=== PATIENT | female | born 1950 | race Caucasian/White ===

== ENCOUNTER 2024-02-25 12:37 | Emergency (ER) | payer OTHER, SELFPAY ==
[2024-02-25 13:13] VITALS: BP 121/50; PULSE 63; RESP 15; TEMP 36.7; O2SAT 94
--- NOTE | 2024-02-25 13:36 | PC.NURSE ---
Pt daughter is refusing to let the pt be tested for Covid. RN attempted to educate pt and pt daughter but was unsuccessful. Pt daughter stating If they swab you for it, you'll get covid. RN attempted to again educate patient and pt daughter but was unsuccessful. Pt daughter states the The reason my mom is this way is because she smoked K2 . Pt refused to be tested, EDP Sandhya Stroud PA-C made aware of refusal and substance use
[2024-02-25 13:57] LABS: Hematocrit 34.8 % (37.0-47.0); Hemoglobin 11.1 g/dL (12.0-15.0); Immature Platelet Fraction Pct 3.9 % (0.9-11.2); Mean Corpuscular HGB Conc 31.9 g/dl (32-36); Mean Corpuscular Hemoglobin 31.4 pg (26-34); Mean Corpuscular Volume 98.6 fl (80-100); Mean Platelet Volume 9.9 fl (7.4-10.4); Platelet Count Result 107 k/mm3 (150-375); Red Blood Count 3.53 M/mm3 (4.2-5.4); Red Cell Distribution Width 14.1 % (11.5-14.5)
[2024-02-25 14:05] LABS: Alanine Aminotransferase 13 U/L (6-35); Albumin Level 4.2 g/dL (3.5-5.1); Alkaline Phosphatase 86 U/L (38-126); Anion Gap 10 mmol/L (4-12); Aspartate Amino Transferase 38 U/L (14-36); Bilirubin,Total 0.6 mg/dL (0.2-1.3); Blood Urea Nitrogen 23 mg/dL (7-17); Calcium 8.9 mg/dL (8.4-10.2); Carbon Dioxide 26 mmol/L (22-30); Chloride 99 mmol/L (98-107); Creatine Kinase 42 U/L (30-135); Estimated Glomerular Filt Rate > 60; Glucose 93 mg/dL (65-110); Lipase 145 U/L (23-300); Potassium 3.7 mmol/L (3.4-5.0); Sodium 135 mmol/L (137-145)
[2024-02-25 14:20] LABS: White Blood Count 73.4 K/mm3 (4.5-10.0)
[2024-02-25 14:25] LABS: Band Neutrophils Percent 1 % (0-6); Lymphocytes Absolute Manual 69.73 K/mm3 (1.1-4.5); Lymphocytes Percent Manual 95 % (18-44); Neutrophils Absolute Manual 3.67 K/mm3 (1.7-7.2); Neutrophils Percent Manual 4 % (46-73); Platelet Estimate Decreased (Adequate); Schistocytes None Seen; Smudge Cells MODERATE
[2024-02-25 15:00] LABS: Add Urine Microscopic? YES; Appearance Urine Clear (Clear); Bacteria Urine Rare /hpf; Bilirubin Urine Negative (Negative); Blood Urine 1+ (Negative); Color Urine Yellow (Yellow); Glucose Urine UA Negative (Negative); Ketones Urine Trace mg/dL (Negative); Leukocyte Esterase Ur Negative LEU/UL (Negative); Nitrate Urine Negative (Negative); Non Pathogenic Casts 0-2; Protein Urine Negative (Negative); RBC Urine 0-2 /hpf (0-2); Specific Grav Ur 1.016 (1.001-1.035); Squamous Epithelial Cell Urine Occasional /hpf (Few); Urobilinogen Urine 0.2 mg/dL (<2.0); WBC Urine 0-5 /hpf (0-3); pH Urine 5.5 (5.0-9.0)
[2024-02-25 15:21] LABS: Amphetamine Screen Urine Negative (Negative); Barbiturate Screen Urine Negative (Negative); Benzodiazepines Screen Urine Negative (Negative); Cannabinoid Screen Urine Positive (Negative); Cocaine Screen Urine Negative (Negative); Methadone Screen Urine Negative (Negative); Opiate Screen Urine Negative (Negative); Phencyclidine Screen Urine Negative (Negative)
[2024-02-25 15:35] LABS: Influenza A QL RT-PCR Negative (Negative); Influenza B QL RT-PCR Negative (Negative); RSV RNA, RT-PCR Negative (Negative); SARS-CoV-2 RNA PCR Negative (Negative)
== END 2024-02-26 03:52 | disposition left against medical advice (07) ==
PROVIDERS: Emergency Provider Physician Assistant; PCP Internal Medicine
DX: R11.2 Nausea with vomiting, unspecified (principal); R19.7 Diarrhea, unspecified; Z20.822 Contact with and (suspected) exposure to COVID-19
CPT/HCPCS: 36415; 80053; 80307; 81001; 82550; 83690; 85025; 85055; 87637; 99199

== ENCOUNTER 2024-03-16 12:52 | Observation (INO) | payer MEDICARE, SELFPAY ==
[2024-03-16] VITALS (12 sets, daily range): BP systolic 148–180; BP diastolic 65–90; PULSE 56–98; RESP 11–18; TEMP 36.5–36.8; O2SAT 96–99; BMI 17.9
--- NOTE | ~2024-03-16 | US_ITS ---
EXAMINATION: US carotid duplex BI DATE: 03/17/2024 12:15 INDICATION: Vertigo. TECHNIQUE: Grayscale, color Doppler, and pulsed Doppler images of the cervical carotid arteries were obtained. The degree of vessel stenosis is placed in one of the following categories: normal, <50%, 5 0-69%, >=70% but less than near-occlusion, near-occlusion, or total occlusion. Note that percent sten osis relative to normal distal artery lumen diameter is indirectly measured from velocity measurement s as described by Tomás, et al. Radiology 2003; 229:340-346. COMPARISON: Ultrasound 04/01/2007, CT chest 03/16/2024 FINDINGS: There is mild right internal jugular chain lymphadenopathy. RIGHT: The right common carotid artery (CCA) peak systolic velocity (PSV) is 61 cm/s. The right internal car otid artery (ICA) PSV is 138 cm/s. The right ICA end-diastolic velocity (EDV) is 30 cm/s. The right I CA/CCA PSV ratio is 2.2. Grayscale and color Doppler images yield an estimate of <50% diameter reduct ion from plaque in the ICA. There is antegrade flow in the right vertebral artery. LEFT: The left CCA PSV is 76 cm/s. The left ICA PSV is 118 cm/s. The left ICA EDV is 21 cm/s. The left ICA/ CCA PSV ratio is 1.5. Grayscale and color Doppler images yield an estimate of <50% diameter reduction from plaque in the ICA. There is antegrade flow in the left vertebral artery. IMPRESSION: 1. <50% stenosis in the right internal carotid artery. 2. <50% stenosis in the left internal carotid artery. 3. Mild right internal jugular chain lymphadenopathy suspicious for lymphoma. Ultrasound-guided core biopsy of a right axillary lymph node is recommended. Reviewed, dictated and finalized at location A. IMPRESSION: 1. <50% stenosis in the right internal carotid artery. 2. <50% stenosis in the left internal carotid artery. 3. Mild right internal jugular chain lymphadenopathy suspicious for lymphoma. U ltrasound-guided core biopsy of a right axillary lymph node is recommended.
--- NOTE | ~2024-03-16 | CT_ITS ---
EXAMINATION: CTA chest PE protocol DATE: 03/16/2024 16:26 INDICATION: SOB TECHNIQUE: Computed tomography angiography (CTA) of the chest was performed with 100 mL Omnipaque-350 intravenous contrast timed to evaluate the pulmonary arteries. Coronal maximum intensity projection 3D-reconstructions were created by the technologist. The dose-length product (DLP) was 156.28 mGy-cm. Automated exposure control and iterative reconstruction technique were employed. COMPARISON: None. FINDINGS: Lung parenchyma and airways: Severe emphysematous change. Calcified right lower lobe granulomas. Smal l focus of groundglass opacity in the peripheral left upper lobe. Bandlike right upper lobe scarring. Patent airways. Pleura: Unremarkable. Thoracic inlet, axillae and chest wall: Bilateral axillary lymphadenopathy. Thoracic aorta: No significant dilation. No dissection. Mild arch calcification. Mediastinum: Mediastinal and bilateral hilar lymphadenopathy. Dilated central pulmonary arteries. Heart and pericardium: Normal. Coronary artery calcifications: Mild. Upper abdomen: No significant finding. Bones: Mild-moderate height loss with possible posterior cortex involvement at T12. Pulmonary arteries: Study quality: Adequate. No pulmonary emboli detected. IMPRESSION: No CT evidence of acute pulmonary embolus. Subsegmental groundglass opacity in the peripheral left upper lobe may represent a focus of inflammat ion/infection. Severe emphysematous change. Radiographic findings suggestive of pulmonary arterial hypertension. Bilateral axillary, mediastinal, and bilateral hilar lymphadenopathy. Mild burst fracture at T12, presumably chronic, unless accompanied by history of recent trauma or acu te pain/tenderness. Reviewed, dictated and finalized at location K. IMPRESSION: No CT evidence of acute pulmonary embolus. Subsegmental groundglass opacity in the peripheral left upper lobe may represen t a focus of inflammation/infection. Severe emphysematous change. Radiographic findings suggestive of pulmonary frankie rial hypertension. Bilateral axillary, mediastinal, and bilateral hilar lymphadenopathy. Mild burst fracture at T12, presumably chronic, unless accompanied by history o f recent trauma or acute pain/tenderness.
--- NOTE | ~2024-03-16 | MR_ITS ---
EXAMINATION: MR brain/brain stem wo con DATE: 03/17/2024 11:35 INDICATION: Vertigo. TECHNIQUE: Magnetic resonance imaging (MRI) of the brain and brainstem was performed without intraven ous contrast. COMPARISON: Head CT 03/16/2024 FINDINGS: There are scattered areas of nonspecific increased T2-weighted signal intensity in the cere bral white matter. There is no intracranial hemorrhage, acute infarction, or abnormal intracranial ma ss lesion. The ventricles are normal in size. The paranasal sinuses are clear. The orbits are normal. There are trace bilateral mastoid effusions. IMPRESSION: 1. Moderate nonspecific cerebral white matter disease, which likely represents chronic small vessel i schemic disease. Reviewed, dictated and finalized at location A. IMPRESSION: 1. Moderate nonspecific cerebral white matter disease, which likely represents chronic small vessel ischemic disease.
--- NOTE | ~2024-03-16 | CT_ITS ---
CT brain wo con Ordering provider: Zaina Owen History: 73 years Female with . 3 days dizziness . Comparison: None. Technique: CT of the head without contrast. Radiation reduction technique utilized.The dose-length product was 605.33 mGy-cm. FINDINGS: BRAIN PARENCHYMA AND CSF SPACES: Mild leukoaraiosis and diffuse cortical atrophy. Mild atheromatous d isease. No midline shift, mass effect or hemorrhage. The brain parenchyma and CSF spaces are otherwi se normal. VISUALIZED PARANASAL SINUSES: Well aerated. MASTOIDS: Well aerated. BONES: The bones appear intact. SOFT TISSUES: Visualized nasopharynx is normal. Superficial soft tissues are normal. IMPRESSION: No acute intracranial findings. Reviewed, dictated and finalized at location A.
--- NOTE | 2024-03-16 15:11 | ED.DIZZY ---
HPI - Dizziness General Chief Complaint: Dizziness <Zaina Owen APRN - Last Filed: 03/16/24 15:41> Stated Complaint: dizziness <Zaina Owen APRN - Last Filed: 03/16/24 15:41> Time Seen by Provider: 03/16/24 15:20 <Zaina Owen APRN - Last Filed: 03/16/24 15:41> Focused HPI: Pt is a 73-year-old female who presents to the ER with a 3 day history of dizziness. She reports she experiences dizziness and nausea whenever she moves, especially when she sits up from a laying position. Pt reports she has no history of vertigo, but endorses a history of HTN and asthma. She reports she smokes e-cigarettes. Pt reports she was here recently because I smoked something I shouldn't have. She denies shortness of breath, chest pain or one-sided weakness/tingling/numbness. GENERAL: Well-appearing, well-nourished, and in no acute distress. HEAD: Normocephalic, atraumatic. CHEST: Wheezing to bilateral lower lobes. ?No respiratory distress. HEART: Regular rate and rhythm.? NEURO: ?Alert and oriented x3. Neuro checks intact. Patient screened in triage and initial orders placed.? ?Additional care and disposition to be based upon?diagnostic testing and treatment. <Zaina Owen APRN - Last Filed: 03/16/24 15:41> History of Present Illness HPI Narrative: 73-year-old female presented emergency department for evaluation for increased shortness of breath. Patient states she does not have follow-up with physicians and is unaware of her underlying medical issues. Patient did have some baseline labs drawn an January but patient left before those resulted. Patient is on aware of her elevated white blood cell count <Clark Barrera MD - Last Filed: 03/16/24 19:18> Related Data Home Medications: Home Medications Medication Instructions Recorded Confirmed aspirin 81 mg chewable tablet 81 mg PO DAILY 03/16/24 03/16/24 <Zaina Owen APRN - Last Filed: 03/16/24 15:41> Allergies/Adverse Reactions: Allergies Allergy/AdvReac Type Severity Reaction Status Date / Time meperidine [From Demerol] Allergy Severe Unresponsiv Verified 03/16/24 18:42 e <Zaina Owen APRN - Last Filed: 03/16/24 15:41> Review of Systems Review of Systems: All systems reviewed & are unremarkable except as noted in HPI and below <Clark Barrera MD - Last Filed: 03/16/24 19:18> PMFSH Family History Family History: Family History (Updated 03/16/24 @ 18:52 by Demi Zarco RN) Father Acute myocardial infarction Asthma Chronic obstructive pulmonary disease Hypertension Mother Pacemaker Asthma Hypertension Sibling Asthma Chronic obstructive pulmonary disease Hypertension <Zaina Owen APRN - Last Filed: 03/16/24 15:41> Social History Social History: Social History (Updated 03/16/24 @ 18:36 by Tigist Leonardo PA-C) Social History: Surrogate medical decision maker: Taina Hung, daughter. Code status: Full code. Smoking status: Former smoker Tobacco type: cigarettes and e-cigarettes/vaping Additional smoking assessment comments: quit cigarettes 30 years ago Alcohol intake: current Drinks per week: 21 Substance use: current Substance use type: marijuana Last use: t Do You Feel Safe in your Home?: Yes Lack of Transportation: No Lack of Food: Never True Current Housing: I Have Housing Concerned About Future Housing: No Difficulty Paying Gas/Electric Bills: No Difficulty Paying for Meds: No Currently Unemployed: No Education: Grade School Difficulty w/ Childcare or Family Care: No Spiritual care concerns: Yes <Zaina Owen APRN - Last Filed: 03/16/24 15:41> Exam Narrative: APPEARANCE: Well appearing, no pain, no distress, well-nourished. HEAD: normocephalic, atraumatic. EYES: PERRLA/EOMI, conjunctivae clear. NOSE: Normal no drainage EARS:TMS clear with good light reflex. THROAT: Pharynx clear,
--- NOTE | 2024-03-16 15:14 | ECG_ITS ---
Test Date: 2024-03-16 15:18:56 Measurements Intervals [place] Rate: 57 P: 75 ND: 159 QRS: 74 QRSD: 91 T: 64 QT: 428 QTc: 418 Interpretive Statements SINUS BRADYCARDIA WITH SINUS ARRHYTHMIA LEFT VENTRICULAR HYPERTROPHY WITH ST-T CHANGE CANNOT R/O SEPTAL INFARCT, AGE INDETERMINATE BASELINE ARTIFACT- I, III, AVR, AVL, AVF ABNORMAL ECG No previous ECG available for comparison Electronically Signed On 03-16-2024 19:53:40 CDT by Kai Wood D.O.
[2024-03-16] MEDS: IPRATROPIUM 0.5 MG/ALBUTEROL SULFATE 2.5 MG AMPUL.NEB 3 ML 6 ML INHALATION (15:42)
[2024-03-16 15:44] LABS: Hemoglobin 11.6 g/dL (12.0-15.0); Immature Platelet Fraction Pct 4.6 % (0.9-11.2); Mean Corpuscular HGB Conc 31.4 g/dl (32-36); Mean Corpuscular Hemoglobin 31.2 pg (26-34); Mean Corpuscular Volume 99.5 fl (80-100); Mean Platelet Volume 9.6 fl (7.4-10.4); Platelet Count Result 142 k/mm3 (150-375); Red Blood Count 3.72 M/mm3 (4.2-5.4); Red Cell Distribution Width 14.1 % (11.5-14.5)
[2024-03-16 15:53] LABS: Add Urine Microscopic? YES; Appearance Urine Clear (Clear); Bacteria Urine None Seen /hpf; Bilirubin Urine Negative (Negative); Blood Urine 1+ (Negative); Color Urine Yellow (Yellow); Glucose Urine UA Negative (Negative); Ketones Urine Negative (Negative); Leukocyte Esterase Ur Negative LEU/UL (Negative); Nitrate Urine Negative (Negative); Non Pathogenic Casts 0-2; Protein Urine Negative (Negative); RBC Urine 0-2 /hpf (0-2); Specific Grav Ur 1.005 (1.001-1.035); Squamous Epithelial Cell Urine None Seen /hpf (Few); Urobilinogen Urine 0.2 mg/dL (<2.0); WBC Urine 0-5 /hpf (0-3); pH Urine 5.5 (5.0-9.0)
[2024-03-16 15:56] LABS: Alanine Aminotransferase 14 U/L (6-35); Albumin Level 4.5 g/dL (3.5-5.1); Alkaline Phosphatase 96 U/L (38-126); Anion Gap 11 mmol/L (4-12); Aspartate Amino Transferase 49 U/L (14-36); Bilirubin,Total 0.8 mg/dL (0.2-1.3); Blood Urea Nitrogen 21 mg/dL (7-17); Calcium 9.5 mg/dL (8.4-10.2); Carbon Dioxide 26 mmol/L (22-30); Chloride 99 mmol/L (98-107); Estimated CRCL calculation 34 ml/min; Estimated Glomerular Filt Rate > 60; Glucose 91 mg/dL (65-110); Potassium 4.4 mmol/L (3.4-5.0); Sodium 136 mmol/L (137-145)
[2024-03-16 16:00] LABS: White Blood Count 93.1 K/mm3 (4.5-10.0)
[2024-03-16 16:05] LABS: Lymphocytes Absolute Manual 83.79 K/mm3 (1.1-4.5); Lymphocytes Percent Manual 90 % (18-44); Monocytes Absolute Manual 4.65 K/mm3 (0.1-0.90); Monocytes Percent Manual 5 % (3-9); Neutrophils Percent Manual 5 % (46-73); Platelet Estimate Slightly Decreased (Adequate)
[2024-03-16 16:06] LABS: Schistocytes None Seen; Smudge Cells MODERATE
[2024-03-16] MEDS: SODIUM CHLORIDE 0.9% IV 1,000 ML 999 ML IV CONT (16:32)
[2024-03-16] MEDS: MECLIZINE HCL 25 MG TABLET PO (16:32)
--- NOTE | 2024-03-16 16:43 | PC.NURSE ---
Pt ambulated to BR independently with cane without difficulty
--- NOTE | 2024-03-16 17:30 | PC.NURSE ---
Pt ambulating with steady gait with cane while talking on the phone.
--- NOTE | 2024-03-16 17:55 | PC.NURSE ---
Blood cultures x2 drawn and sent to lab
--- NOTE | 2024-03-16 17:56 | PC.NURSE ---
Pt with exp wheezes in bases bilateral
--- NOTE | 2024-03-16 17:59 | PC.NURSE ---
RN called IMU to given report. Accepting RN unable to take report at this time
[2024-03-16 18:09] LABS: Lactic Acid Reflex 1.3 mmol/L (0.7-2.0)
[2024-03-16] MEDS: AZITHROMYCIN 500 MG/NS 250 ML 500 MG/250 ML BAG 250 MG IVPB (18:13)
[2024-03-16 18:35] LABS: Procalcitonin < 0.0 ng/mL
--- NOTE | 2024-03-16 18:35 | PM.IMHP ---
H&P: HPI History of Present Illness Date/Time: 03/16/24 19:00 Chief Complaint: Dizziness. Narrative: This is a pleasant 73-year-old female with no reported medical history however she admits she has not seen a doctor in decades who presented to the emergency department via private vehicle accompanied by her daughter for evaluation of dizziness. About 4 days ago when she was getting out of bed she developed sudden onset vertigo which has been pretty persistent since the outset. The vertigo was so severe that it caused her to fall out of bed. Since that time she has been having to hold onto things to walk to prevent falls. Vertigo is worse with movement, especially when she sits up from a supine position. When her symptoms started she had a whooshing sensation in her ears but now ?I hear crickets in them.? She has had some nausea as well. Her appetite has not been great and in fact she has lost about 12 lb in unknown time frame. She has sweats, especially at night, but has not had a fever. She denies syncope, near syncope, visual changes, facial droop, difficulty speaking and swallowing, focal weakness, paresthesias, sensations of racing heart, palpitations, and vomiting. She has not noticed any swollen lymph nodes. In the ED: Vital sounds on arrival include a blood pressure 155/80, pulse 61, respiratory 18, pulse ox 98% room air, temperature 97.8?. EKG showed sinus bradycardia with sinus arrhythmia, left ventricular hypertrophy with ST-T change, cannot rule out septal infarct. Head CT showed no acute intracranial findings. Labs were significant for WBC count of 93.1 with 90% neutrophils and smudge cells on peripheral smear, hemoglobin 11.6, sodium 136, potassium 4.4, BUN 21, creatinine 0.80, magnesium 2.0, AST 49, troponin 0.080. Chest CTA showed no evidence of acute pulmonary embolus, subsegmental ground-glass opacities in the peripheral left upper lobe, severe emphysema, findings suggestive of pulmonary arterial hypertension, bilateral axillary mediastinal and hilar lymphadenopathy, and mild burst fracture T12 presumably chronic. She is being admitted in this setting for further evaluation. Review of Systems Review of Systems: 12 systems were reviewed and are negative except for as per HPI. [facility] Past Medical History Medical History Nicotine-filled electronic cigarette user Surgical History Surgical History (Updated 09/16/24 @ 22:16 by Tigist Leonardo PA-C) History of open reduction and internal fixation (ORIF) procedure Repair left ankle fracture. Family History Family History Father Acute myocardial infarction Asthma Chronic obstructive pulmonary disease Hypertension Mother Pacemaker Asthma Hypertension Sibling Asthma Chronic obstructive pulmonary disease Hypertension Social History Social History (Updated 03/16/24 @ 22:16 by Tigist Leonardo PA-C) Social History: Surrogate medical decision maker: Taina Hung, daughter. Code status: Full code. Smoking status: Former smoker Tobacco type: e-cigarettes/vaping Additional smoking assessment comments: quit cigarettes 30 years ago Alcohol intake: current Drinks per week: 21 Substance use: current Substance use type: marijuana Last use: t Do You Feel Safe in your Home?: Yes Lack of Transportation: No Lack of Food: Never True Current Housing: I Have Housing Concerned About Future Housing: No Difficulty Paying Gas/Electric Bills: No Difficulty Paying for Meds: No Currently Unemployed: No Education: Grade School Difficulty w/ Childcare or Family Care: No Spiritual care concerns: Yes Meds Home Medications and Allergies Home Medications Medication Instructions Recorded Confirmed Type aspirin 81 mg chewable tablet 81 mg PO DAILY 03/16/24 03/16/24 History Allergies Allergy/AdvReac Type Severity Reaction Status Date / Time meperidine [From De
--- NOTE | 2024-03-16 18:44 | ADMGEN ---
This patient, Karen Hung, was admitted to IMU Room 205-01. Patient/family oriented to hospital policies and general routines including ID bracelet, bed and alarms, visiting hours, pain management, procedures, bathroom and other care routines, personal items, smoking policy, room service/diet, and visiting hours. Information on how to activate the Rapid Response Team has been discussed. Patient/Family are encouraged to report perceived risks to care and to ask questions if they do not understand what they are told or what they should do.
[2024-03-16 22:57] LABS: Phosphorus 3.7 mg/dL (2.5-4.5); Uric Acid 6.7 mg/dL (2.5-7.5)
[2024-03-16 23:12] LABS: Troponin I 0.098 ng/mL (0.000-0.034)
[2024-03-17] VITALS (25 sets, daily range): BP systolic 99–178; BP diastolic 49–80; PULSE 55–75; RESP 16–20; TEMP 36.2–37.1; O2SAT 94–99; BMI 17.5
--- NOTE | 2024-03-17 | ECHO_ITS ---
Patient Info Name: Karen Hung Age: 73 years : 1950 Gender: Female Ht: 60 in Wt: 92 lbs BSA: 1.32 m2 HR: 65 bpm BP: 114 / 54 mmHg Technical Quality: Good Exam Date: 03/17/2024 10:54 AM Exam Location: Echo Lab Patient Status: Outpatient Admit Date: 03/16/2024 Staff Ordering Physician: Tigist Leonardo PA-C Marine Chronometer Assembler: Ann Marie Interiano RDCS Attending Provider: Molly Velez APRN Referring Physician: Jorden VICENTE; Exam Type: CA echo doppler color flow Study Info Indications - ELEVATED TROPONIN Complete two-dimensional, color flow and Doppler transthoracic echocardiogram is performed. Summary 1. Left ventricular chamber dimension is normal. 2. Left ventricular systolic function is normal, estimated at 65-70%. 3. There is mildly increased left ventricular wall thickness. 4. The left ventricular diastolic function is grade I diastolic dysfunction. 5. Right ventricular systolic function is normal. 6. Left atrial chamber dimension is severely enlarged. 7. Right atrial chamber dimension is mildly enlarged. 8. The atrial septum appears aneurysmal. 9. Suspected patent foramen ovale visualized by color flow imaging. 10. There is mild aortic valve regurgitation. 11. There is mild mitral valve regurgitation. 12. There is mild tricuspid valve regurgitation. Left Ventricle Left ventricular chamber dimension is normal. Left ventricular systolic function is normal, estimated at 65-70%. There is mildly increased left ventricular wall thickness. The left ventricular diastolic function is grade I diastolic dysfunction. Right Ventricle Right ventricular chamber dimension is normal. Right ventricular systolic function is normal. Left Atria Left atrial chamber dimension is severely enlarged. Right Atria Right atrial chamber dimension is mildly enlarged. Atrial Septum The atrial septum appears aneurysmal. Suspected patent foramen ovale visualized by color flow imaging. Aortic Valve The aortic valve is not well visualized. There is mild aortic valve regurgitation. There is mild aortic valve calcification. Pulmonic Valve The pulmonic valve is not well visualized. Mitral Valve The mitral valve has thickened leaflets. There is mild mitral valve regurgitation. Tricuspid Valve There is mild tricuspid valve regurgitation. Pericardium/Pleural There is no pericardial effusion. Inferior Vena Cava Normal inferior vena cava with <50% collapse upon inspiration consistent with elevated right atrial pressure, 8 mmHg. Aorta The aortic root size at the sinus of Valsalva is normal. Left Ventricular Outflow Tract Name Value Normal LVOT 2D LVOT Diameter 1.9 cm LVOT Doppler LVOT Peak Gradient 6 mmHg LVOT Mean Gradient 3 mmHg LVOT VTI 24 cm LVOT VTI/AV VTI Ratio 0.7 LVOT Stroke Volume 69 ml LVOT CO 4.7 l/min LVOT CI 3.6 l/min/m2 Pulmonic Valve Name Value Normal --
[2024-03-17] MEDS: ALBUTEROL SULFATE NEB 2.5 MG/3 ML INH INHALATION ×5 (01:54→19:50)
[2024-03-17 05:16] LABS: Hematocrit 30.9 % (37.0-47.0); Hemoglobin 9.8 g/dL (12.0-15.0); Immature Platelet Fraction Pct 4.8 % (0.9-11.2); Mean Corpuscular HGB Conc 31.7 g/dl (32-36); Mean Corpuscular Hemoglobin 31.8 pg (26-34); Mean Corpuscular Volume 100.3 fl (80-100); Mean Platelet Volume 10.1 fl (7.4-10.4); Platelet Count Result 115 k/mm3 (150-375); Red Blood Count 3.08 M/mm3 (4.2-5.4); Red Cell Distribution Width 14.3 % (11.5-14.5)
[2024-03-17 05:22] LABS: White Blood Count 82.1 K/mm3 (4.5-10.0)
[2024-03-17 05:27] LABS: Anion Gap 7 mmol/L (4-12); Blood Urea Nitrogen 15 mg/dL (7-17); Calcium 8.7 mg/dL (8.4-10.2); Carbon Dioxide 27 mmol/L (22-30); Chloride 105 mmol/L (98-107); Cholesterol 183 mg/dL (0-200); Estimated CRCL calculation 40 ml/min; Estimated Glomerular Filt Rate > 60; Glucose 86 mg/dL (65-110); HDL Direct 35 mg/dL; Sodium 139 mmol/L (137-145); Triglycerides 84 mg/dL (<150)
[2024-03-17 05:36] LABS: LDL Cholesterol Direct 113 mg/dL
[2024-03-17 05:43] LABS: Troponin I 0.056 ng/mL (0.000-0.034)
--- NOTE | 2024-03-17 09:33 | PM.CNCAR ---
Assessment and Plan Assessment and plan (1) Elevated troponin: Code(s): R79.89 - Other specified abnormal findings of blood chemistry Status: Acute Assessment and Plan: Troponins are minimally elevated and flat. This is not consistent with acute coronary syndrome/plaque rupture. She does not have any anginal symptoms. Cannot rule out underlying coronary artery disease as she certainly has significant risk with a long history of cigarette use and vaping as well as family history. Check a lipid panel. Echocardiogram has been ordered and is pending. Can consider outpatient stress testing. (2) Arrhythmia: Code(s): I49.9 - Cardiac arrhythmia, unspecified Status: Acute Assessment and Plan: Telemetry shows sinus rhythm with frequent atrial premature contractions. No evidence of atrial fibrillation or other arrhythmia. (3) Leukocytosis: Code(s): D72.829 - Elevated white blood cell count, unspecified Status: Acute Assessment and Plan: White blood cell count significantly elevated, 93.1K, lymphadenopathy on CT scan. She reports unintentional weight loss as well as frequent night sweats. Concern for CLL. Oncology has been consulted. (4) Pneumonia: Code(s): J18.9 - Pneumonia, unspecified organism Status: Acute Assessment and Plan: Management per primary team. Plan She does not have any active cardiac issues. Cardiology will sign off, please call with questions. History of Present Illness History of Present Illness Consult date/time: 03/17/24 09:33 Requesting physician: Molly Velez APRN Consult reason: Other (elevated troponin, arrhythmia) Reason For Visit: Pneumonia, Leukocytosis, Shortness of breath, Vert Narrative: Karen Hung is a 73-year-old female with no medical history although she never goes to the doctor. She comes to the hospital with a chief complaint of dizziness. Cardiology has been asked to see her because of elevated troponin levels and arrhythmia. Her troponin was initially elevated at 0.080, repeat troponin was 0.098, down trended to 0.056. Patient denies any recent chest pain. She does recall an episode of chest pain about 2 months ago that when she took an aspirin. She denies any shortness of breath and feels like she cannot take deep breaths. She denies any syncope, presyncope, palpitations, swelling. She has had intermittent dizziness for about 5 days. At the time of my evaluation, she is sitting comfortably in bed and does not have any active complaints. Review of Systems Review of Systems: All systems reviewed & are unremarkable except as noted in HPI and below PMFSH Past Medical History Medical History Nicotine-filled electronic cigarette user Surgical History Surgical History History of open reduction and internal fixation (ORIF) procedure Repair left ankle fracture. Family History Family History Father Acute myocardial infarction Asthma Chronic obstructive pulmonary disease Hypertension Mother Pacemaker Asthma Hypertension Sibling Asthma Chronic obstructive pulmonary disease Hypertension Social History Social History Social History: Surrogate medical decision maker: Taina Hung, daughter. Code status: Full code. Smoking status: Former smoker Tobacco type: e-cigarettes/vaping Additional smoking assessment comments: quit cigarettes 30 years ago Alcohol intake: current Drinks per week: 21 Substance use: current Substance use type: marijuana Last use: t Do You Feel Safe in your Home?: Yes Lack of Transportation: No Lack of Food: Never True Current Housing: I Have Housing Concerned About Future Housing: No Difficulty Paying Gas/Electric Bills: No Difficulty Paying for Meds: No [place]
[2024-03-17] MEDS: AZITHROMYCIN 500 MG/NS 250 ML 500 MG/250 ML BAG 250 MG IVPB (12:13)
[2024-03-17] MEDS: CEFEPIME 2 GM/NS 50 ML 2 GM/50 ML BAG IVPB ×2 (13:28→20:25)
[2024-03-17] MEDS: NICOTINE (*PBKC) 21 MG PATCH 1 PATCH TRANSDERM (13:35)
--- NOTE | 2024-03-17 15:25 | P.PNIM_ITS ---
Progress Note: A&P Assessment and Plan (1) Leukocytosis: Code(s): D72.829 - Elevated white blood cell count, unspecified Status: Acute Assessment and Plan: * WBC 93.1 POA * CBC likely suspicious of CLL * Lymphadenopathy noted on CT scan * Poor appetite recent weight loss * Oncology consulted * Will likely need biopsy of lymph node or bone marrow biopsy (2) Pneumonia: Code(s): J18.9 - Pneumonia, unspecified organism Status: Acute Assessment and Plan: Pneumonia * Bronchodilators. * Chest x-ray/ctA reviewed * incentive spirometry while awake. * influenza/COVID/RSV negative * Cefepime and azithromycin * Smoking cessation counseling done * CMP/CBC daily * Mucolytics (3) Elevated troponin: Code(s): R79.89 - Other specified abnormal findings of blood chemistry Status: Acute Assessment and Plan: * Troponin peaked at 0.098 * Denied CP * Cardiology consulted * Echocardiogram pending * Continues cardiac monitoring * Lipid panel (4) Vertigo: Code(s): R42 - Dizziness and giddiness Status: Acute Assessment and Plan: * CT head negative * MRI with no acute issues * Likely secondary to dehydration, malnutrition and possible CLL * Vestibular PT * orthostatics negative * Meclizine p.r.n. (5) Severe protein-calorie malnutrition: Code(s): E43 - Unspecified severe protein-calorie malnutrition Status: Acute Assessment and Plan: * Likely secondary to patient's potential CLL diagnosis * Dietitian consulted * Dietary supplements added * Megace added * Protein shakes with each meal * Patient states she smokes marijuana at home to help with her appetite Plan Code status: Full code per patient DVT prophylaxis: Lovenox Stress ulcer prophylaxis: NA PT/OT notes: PT OT with Vestibular therapy Disposition: Patient was admitted to IMU for pneumonia and elevated troponin was seen by Cardiology cleared however will need to be seen by Oncology due to potential diagnosis of CLL can transfer [facility] for further evaluation and treatment. Time Spent With Patient Time with patient: 15 - 25 minutes Subjective Date/time seen: 03/17/24 15:25 Interval history: This is a pleasant 73-year-old female with no reported medical history however she admits she has not seen a doctor in decades who presented to the emergency department via private vehicle accompanied by her daughter for evaluation of dizziness. About 4 days ago when she was getting out of bed she developed sudden onset vertigo which has been pretty persistent since the outset. The vertigo was so severe that it caused her to fall out of bed. Since that time she has been having to hold onto things to walk to prevent falls. Vertigo is worse with movement, especially when she sits up from a supine position. When her symptoms started she had a whooshing sensation in her ears but now ?I hear crickets in them.? She has had some nausea as well. Her appetite has not been great and in fact she beckett
--- NOTE | 2024-03-17 15:25 | PM.IMPN ---
Progress Note: A&P Assessment and Plan (1) Leukocytosis: Code(s): D72.829 - Elevated white blood cell count, unspecified Status: Acute Assessment and Plan: WBC 93.1 POA CBC likely suspicious of CLL Lymphadenopathy noted on CT scan Poor appetite recent weight loss Oncology consulted Will likely need biopsy of lymph node or bone marrow biopsy (2) Pneumonia: Code(s): J18.9 - Pneumonia, unspecified organism Status: Acute Assessment and Plan: Pneumonia Bronchodilators. Chest x-ray/ctA reviewed incentive spirometry while awake. influenza/COVID/RSV negative Cefepime and azithromycin Smoking cessation counseling done CMP/CBC daily Mucolytics (3) Elevated troponin: Code(s): R79.89 - Other specified abnormal findings of blood chemistry Status: Acute Assessment and Plan: Troponin peaked at 0.098 Denied CP Cardiology consulted Echocardiogram pending Continues cardiac monitoring Lipid panel (4) Vertigo: Code(s): R42 - Dizziness and giddiness Status: Acute Assessment and Plan: CT head negative MRI with no acute issues Likely secondary to dehydration, malnutrition and possible CLL Vestibular PT orthostatics negative Meclizine p.r.n. (5) Severe protein-calorie malnutrition: Code(s): E43 - Unspecified severe protein-calorie malnutrition Status: Acute Assessment and Plan: Likely secondary to patient's potential CLL diagnosis Dietitian consulted Dietary supplements added Megace added Protein shakes with each meal Patient states she smokes marijuana at home to help with her appetite Plan Code status: Full code per patient DVT prophylaxis: Lovenox Stress ulcer prophylaxis: NA PT/OT notes: PT OT with Vestibular therapy Disposition: Patient was admitted to IMU for pneumonia and elevated troponin was seen by Cardiology cleared however will need to be seen by Oncology due to potential diagnosis of CLL can transfer to [facility] for further evaluation and treatment. Time Spent With Patient Time with patient: 15 - 25 minutes Subjective Date/time seen: 03/17/24 15:25 Interval history: This is a pleasant 73-year-old female with no reported medical history however she admits she has not seen a doctor in decades who presented to the emergency department via private vehicle accompanied by her daughter for evaluation of dizziness. About 4 days ago when she was getting out of bed she developed sudden onset vertigo which has been pretty persistent since the outset. The vertigo was so severe that it caused her to fall out of bed. Since that time she has been having to hold onto things to walk to prevent falls. Vertigo is worse with movement, especially when she sits up from a supine position. When her symptoms started she had a whooshing sensation in her ears but now ?I hear crickets in them.? She has had some nausea as well. Her appetite has not been great and in fact she has lost about 12 lb in unknown time frame. She has sweats, especially at night, but has not had a fever. She denies syncope, near syncope, visual changes, facial droop, difficulty speaking and swallowing, focal weakness, paresthesias, sensations of racing heart, palpitations, and vomiting. She has not noticed any swollen lymph nodes. 03/17/2024: Assumed Care Patient seen still reporting dizziness, CT head and MRI negative for acute issues showing small-vessel ischemic disease. Patient reports she has had poor appetite smokes marijuana to help with appetite. Spoke with patient and family members regarding patient's CBC and white count with some concern for CLL she is to be seen by Oncology. Noted lymphadenopathy CT scan chronic burst fracture. Troponins trending down was seen by cardiology who cleared patient for ACS, Echo was pending. Patient on room air denies any difficulty breathing or
[2024-03-17] MEDS: MEGESTROL ACETATE (*CHEMO) 40 MG TABLET PO ×2 (16:26→20:24)
--- NOTE | 2024-03-17 17:55 | PDONCCN ---
[facility] - Date of Consult Date/Time: 03/17/24 17:55 Requesting Physician: Molly Velez APRN Primary Care Provider: Jayjay Resendez, MD - Consult Narrative Reason for consult: Leukemia Narrative: Karen Hung is a 73 year old female has been in good health and does not see a doctor on a routine basis came into the hospital with lightheadedness and dizziness for last 5 days duration. She has been complaining of some night sweats and has lost 10 lb weight in last 3 months duration. She denies any new lumps bumps or lymphadenopathy. Denies any bleeding including melena hematochezia. She has been complaining of tiredness and fatigue. Labs showed elevated WBC count of 93,000 with hemoglobin of 11.6. 90% of cells were lymphocytes. Brain MRI showed moderate nonspecific cerebral white matter disease likely chronic small-vessel ischemic disease. CTA chest showed bilateral axillary mediastinal and hilar lymphadenopathy. She denies any previous history of malignancy. Review of Systems - Review of Systems All systems reviewed & are unremarkable except as noted in HPI and [facility] Medical History: Medical History (Last Reviewed 03/17/24 @ 09:54 by ISH Bardales) Nicotine-filled electronic cigarette user Surgical History: Surgical History (Last Reviewed 03/17/24 @ 09:54 by ISH Bardales) History of open reduction and internal fixation (ORIF) procedure Repair left ankle fracture. Family History: Family History (Last Reviewed 03/17/24 @ 09:54 by ISH Bardales) Father Acute myocardial infarction Asthma Chronic obstructive pulmonary disease Hypertension Mother Pacemaker Asthma Hypertension Sibling Asthma Chronic obstructive pulmonary disease Hypertension - Social History Social History: Social History (Last Reviewed 03/17/24 @ 09:54 by ISH Bardales) Alcohol Use: Alcohol intake: current Drinks per week: 21 Substance Use: Substance use: current Substance use type: marijuana Last use: t Others: Spiritual care concerns: No Smoking Status: Smoking status: Former smoker Tobacco type: e-cigarettes/vaping Comments: Additional smoking assessment comments: quit cigarettes 30 years ago Social Determinants of Health: Do You Feel Safe in your Home?: Yes Has the Lack of Transportation Kept You From Medical Appointments or From Getting Medications?: No Within the Past 12 Months, Were You Worried Whether Your Food Would Run Out Before You Got Money to Buy More?: Never True What is Your Housing Situation Today?: I Have Housing Are You Worried That in the Next 2 Months, You May Not Have Your Own Housing to Live In?: No Do You Have Trouble Paying Your Heating Or Electricity Bill?: No Do You Have Trouble Paying For Medicines?: No Are You Currently Unemployed and Looking for Work?: No Highest Level of Education Completed: Grade School Do You Have Trouble With Childcare or the Care of a Family Member?: No Exam - Vital Signs Vital Signs - 24 hr 03/16/24 18:17 03/16/24 18:53 03/16/24 18:40 Temperature 36.7 C 36.8 C Pulse Rate 71 66 Respiratory Rate 16 18 Blood Pressure 162/66 H 148/65 H Pulse Oximetry 96 96 Oxygen Delivery Room Air Fraction of Inspired Oxygen 03/16/24 20:26 03/16/24 20:00 03/16/24 20:00 Temperature 36.5 C Pulse Rate 74 74 71 Respiratory Rate 16 16 Blood Pressure 149/69 H Pulse Oximetry 99 99 Oxygen Delivery Room Air Fraction of Inspired Oxygen 03/16/24 21:05 03/16/24 22:00 03/17/24 00:15 Temperature Pulse Rate 65 65 Respiratory Rate 16 Blood Pressure Pulse Oximetry 97 97 Oxygen Delivery Room Air Room Air Fraction of Inspired Oxygen 21 03/17/24 00:22 03/17/24 00:00 03/17/24 02:07 Temperature 36.6 C Pulse Rate 66 62 59 L Respiratory Rate 16 20 Blood Pressure 99/49 L Pulse Oximetry 96
[2024-03-17] MEDS: guaiFENesin 12 HR 600 MG TABCR PO (20:24)
[2024-03-18] VITALS (13 sets, daily range): BP systolic 146–178; BP diastolic 66–80; PULSE 64–88; RESP 14–20; TEMP 36.2–37; O2SAT 94–99
[2024-03-18] MEDS: ALBUTEROL SULFATE NEB 2.5 MG/3 ML INH INHALATION ×3 (01:33→13:18)
--- NOTE | 2024-03-18 08:18 | P.PNIM_ITS ---
Progress Note: A&P Assessment and Plan (1) Leukocytosis: Code(s): D72.829 - Elevated white blood cell count, unspecified Status: Acute Assessment and Plan: * WBC 93.1 POA * CBC likely suspicious of CLL * Lymphadenopathy noted on CT scan * Poor appetite recent weight loss * Oncology consulted * Will likely need biopsy of lymph node or bone marrow biopsy (2) Pneumonia: Code(s): J18.9 - Pneumonia, unspecified organism Status: Acute Assessment and Plan: Pneumonia * Bronchodilators. * Chest x-ray/ctA reviewed * incentive spirometry while awake. * influenza/COVID/RSV negative * Cefepime and azithromycin * Smoking cessation counseling done * CMP/CBC daily * Mucolytics (3) Elevated troponin: Code(s): R79.89 - Other specified abnormal findings of blood chemistry Status: Acute Assessment and Plan: * Troponin peaked at 0.098 * Denied CP * Cardiology consulted * Echocardiogram pending * Continues cardiac monitoring * Lipid panel (4) Vertigo: Code(s): R42 - Dizziness and giddiness Status: Acute Assessment and Plan: * CT head negative * MRI with no acute issues * Likely secondary to dehydration, malnutrition and possible CLL * Vestibular PT * orthostatics negative * Meclizine p.r.n. (5) Severe protein-calorie malnutrition: Code(s): E43 - Unspecified severe protein-calorie malnutrition Status: Acute Assessment and Plan: * Likely secondary to patient's potential CLL diagnosis * Dietitian consulted * Dietary supplements added * Megace added * Protein shakes with each meal * Patient states she smokes marijuana at home to help with her appetite Plan Code status: Full code per patient DVT prophylaxis: Lovenox Stress ulcer prophylaxis: NA PT/OT notes: PT OT with Vestibular therapy Disposition: Patient was admitted to IMU for pneumonia and elevated troponin was seen by Cardiology cleared however will need to be seen by Oncology due to potential diagnosis of CLL can transfer to [facility] for further evaluation and treatment. Subjective Date/time seen: 03/18/24 08:18 Interval history: This is a pleasant 73-year-old female with no reported medical history however she admits she has not seen a doctor in decades who presented to the emergency department via private vehicle accompanied by her daughter for evaluation of dizziness. 03/18: Review of Systems Review of Systems: 12 systems were reviewed and are negativ e except for as per HPI. All systems reviewed & are unremarkable except as noted in HPI and below Exam Narrative: General: well appearing, appears stated age. HEENT: normocephalic, atraumatic. Mucous membranes moist. EOMI, PERRLA, bilateral sclera anicteric, no conjunctival injection. Neck supple without JVD, lymphadenopathy, or bruit. Respiratory: clear to ascultation bilaterally. No rales/rhonic/
--- NOTE | 2024-03-18 08:18 | PM.IMPN ---
Progress Note: A&P Assessment and Plan (1) Leukocytosis: Code(s): D72.829 - Elevated white blood cell count, unspecified Status: Acute Assessment and Plan: WBC 93.1 POA CBC likely suspicious of CLL Lymphadenopathy noted on CT scan Poor appetite recent weight loss Oncology consulted Will likely need biopsy of lymph node or bone marrow biopsy (2) Pneumonia: Code(s): J18.9 - Pneumonia, unspecified organism Status: Acute Assessment and Plan: Pneumonia Bronchodilators. Chest x-ray/ctA reviewed incentive spirometry while awake. influenza/COVID/RSV negative Cefepime and azithromycin Smoking cessation counseling done CMP/CBC daily Mucolytics (3) Elevated troponin: Code(s): R79.89 - Other specified abnormal findings of blood chemistry Status: Acute Assessment and Plan: Troponin peaked at 0.098 Denied CP Cardiology consulted Echocardiogram pending Continues cardiac monitoring Lipid panel (4) Vertigo: Code(s): R42 - Dizziness and giddiness Status: Acute Assessment and Plan: CT head negative MRI with no acute issues Likely secondary to dehydration, malnutrition and possible CLL Vestibular PT orthostatics negative Meclizine p.r.n. (5) Severe protein-calorie malnutrition: Code(s): E43 - Unspecified severe protein-calorie malnutrition Status: Acute Assessment and Plan: Likely secondary to patient's potential CLL diagnosis Dietitian consulted Dietary supplements added Megace added Protein shakes with each meal Patient states she smokes marijuana at home to help with her appetite Plan Code status: Full code per patient DVT prophylaxis: Lovenox Stress ulcer prophylaxis: NA PT/OT notes: PT OT with Vestibular therapy Disposition: Patient was admitted to IMU for pneumonia and elevated troponin was seen by Cardiology cleared however will need to be seen by Oncology due to potential diagnosis of CLL can transfer to [facility] for further evaluation and treatment. Subjective Date/time seen: 03/18/24 08:18 Interval history: This is a pleasant 73-year-old female with no reported medical history however she admits she has not seen a doctor in decades who presented to the emergency department via private vehicle accompanied by her daughter for evaluation of dizziness. 03/18: Review of Systems Review of Systems: 12 systems were reviewed and are negative except for as per HPI. All systems reviewed & are unremarkable except as noted in HPI and below Exam Narrative: General: well appearing, appears stated age. HEENT: normocephalic, atraumatic. Mucous membranes moist. EOMI, PERRLA, bilateral sclera anicteric, no conjunctival injection. Neck supple without JVD, lymphadenopathy, or bruit. Respiratory: clear to ascultation bilaterally. No rales/rhonic/wheezes. Cardiovascular: Regular rate and rhythm, normal S1-S2 upon ascultation. No murmurs, rubs, or clicks. PMI is nondisplaced, capillary refill less than 3 second. Abdomen: Soft, round, no pulsatile masses, nondistended and nontender. No rebound, no guarding. No CVA tenderness, no hepatosplenomegaly. Bowel sounds present to all four quadrants. No high pitch or tinkling sounds, resonant to percussion. Extremities: No cyanosis, clubbing, or edema present. Pulses are palpable 2/2. Active ROM to all four extremities. Neuro: Alert and orientated x 4. PERRLA. Cranial nerves 2-12 intact without focal deficit. Skin: Warm, dry, and intact, without rash, erythema, or lesion. Lines: Incisions: Psych: pleasant, cooperative, normal speech, normal affect, no hallucinations, no dysarthia Objective Data Vital Signs Vital Signs: Vital Signs - 24 hr 03/17/24 10:00 03/17/24 12:18 03/17/24 12:00 Temperature 97.4 F L Pulse Rate 74 70 Respiratory Rate 16 Blood Pressure 160/57 H
[2024-03-18] MEDS: AZITHROMYCIN 250 MG TABLET 500 MG PO (08:22)
[2024-03-18] MEDS: guaiFENesin 12 HR 600 MG TABCR PO (08:22)
[2024-03-18] MEDS: MEGESTROL ACETATE (*CHEMO) 40 MG TABLET PO ×2 (08:23→12:51)
[2024-03-18] MEDS: NICOTINE (*PBKC) 21 MG PATCH 1 PATCH TRANSDERM (08:23)
[2024-03-18] MEDS: CEFEPIME 2 GM/NS 50 ML 2 GM/50 ML BAG IVPB (08:43)
[2024-03-18 09:20] LABS: Hematocrit 37.3 % (37.0-47.0); Hemoglobin 11.2 g/dL (12.0-15.0); Immature Platelet Fraction Pct 4.1 % (0.9-11.2); Mean Corpuscular Hemoglobin 31.5 pg (26-34); Mean Corpuscular Volume 105.1 fl (80-100); Mean Platelet Volume 10.2 fl (7.4-10.4); Platelet Count Result 125 k/mm3 (150-375); Red Blood Count 3.55 M/mm3 (4.2-5.4); Red Cell Distribution Width 14.3 % (11.5-14.5)
[2024-03-18 09:23] LABS: Alanine Aminotransferase 13 U/L (6-35); Albumin Level 4.4 g/dL (3.5-5.1); Alkaline Phosphatase 71 U/L (38-126); Anion Gap 10 mmol/L (4-12); Aspartate Amino Transferase 40 U/L (14-36); Bilirubin,Total 0.8 mg/dL (0.2-1.3); Blood Urea Nitrogen 13 mg/dL (7-17); Calcium 9.5 mg/dL (8.4-10.2); Carbon Dioxide 26 mmol/L (22-30); Chloride 103 mmol/L (98-107); Estimated CRCL calculation 35 ml/min; Estimated Glomerular Filt Rate > 60; Glucose 97 mg/dL (65-110); Potassium 4.7 mmol/L (3.4-5.0); Sodium 139 mmol/L (137-145)
[2024-03-18 09:30] LABS: White Blood Count 88.9 K/mm3 (4.5-10.0)
[2024-03-18] MEDS: hydrALAZINE HCL 20 MG/ML VIAL 10 MG IV PUSH (09:35)
[2024-03-18] MEDS: LOSARTAN POTASSIUM 25 MG TABLET PO (09:37)
[2024-03-18 11:30] LABS: Hypochromasia 1+; Lymphocytes Absolute Manual 81.78 K/mm3 (1.1-4.5); Neutrophils Percent Manual 8 % (46-73); Platelet Estimate Slightly Decreased (Adequate); Schistocytes None Seen; Total Cells Counted 100
[2024-03-18 11:31] LABS: Smudge Cells FEW
[2024-03-18] MEDS: LOPERAMIDE HCL 2 MG CAPSULE 4 MG PO (12:51)
[2024-03-18 13:51] LABS: Toxigenic C. Diff NEGATIVE (NEGATIVE)
--- NOTE | 2024-03-18 17:18 | P.DS_ITS ---
DS: Admitting Diagnosis Discharge Date 03/18 Admitting Diagnosis Dizziness DS: Discharge Diagnosis Discharge Diagnosis (1) Leukocytosis: Code(s): D72.829 - Elevated white blood cell count, unspecified Status: Acute (2) Pneumonia: Code(s): J18.9 - Pneumonia, unspecified organism Status: Acute (3) Elevated troponin: Code(s): R79.89 - Other specified abnormal findings of blood chemistry Status: Acute (4) Vertigo: Code(s): R42 - Dizziness and giddiness Status: Acute (5) Severe protein-calorie malnutrition: Code(s): E43 - Unspecified severe protein-calorie malnutrition Status: Acute Plan (1) Leukocytosis: Code(s): D72.829 - Elevated white blood cell count, unspecified Status: Acute Assessment and Plan: * WBC 93.1 POA * CBC likely suspicious of CLL * Lymphadenopathy noted on CT scan * Poor appetite recent weight loss * Oncology consulted * Will likely need biopsy of lymph node or bone marrow biopsy (2) Pneumonia: Code(s): J18.9 - Pneumonia, unspecified organism Status: Acute Assessment and Plan: Pneumonia * Bronchodilators. * Chest x-ray/ctA reviewed * incentive spirometry while awake. * influenza/COVID/RSV negative * Cefepime and azithromycin * Smoking cessation counseling done * CMP/CBC daily * Mucolytics (3) Elevated troponin: Code(s): R79.89 - Other specified abnormal findings of blood chemistry Status: Acute Assessment and Plan: * Troponin peaked at 0.098 * Denied CP * Cardiology consulted * Echocardiogram pending * Continues cardiac monitoring * Lipid panel (4) Vertigo: Code(s): R42 - Dizziness and giddiness Status: Acute Assessment and Plan: * CT head negative * MRI with no acute issues * Likely secondary to dehydration, malnutrition and possible CLL * Vestibular PT * orthostatics negative * Meclizine p.r.n. (5) Severe protein-calorie malnutrition: Code(s): E43 - Unspecified severe protein-calorie malnutrition Status: Acute Assessment and Plan: * Likely secondary to patient's potential CLL diagnosis * Dietitian consulted * Dietary supplements added * Megace added * Protein shakes with each meal * Patient states she smokes marijuana at home to help with her appetite DS: Summary Hospital Course Reason for hospitalization: Pneumonia Hospital Course: This is a pleasant 73-year-old female with no reported medical history however she admits she has not seen a doctor in decades who presented to the emergency department via private vehicle accompanied by her daughter for evaluation of dizziness. About 4 days ago when she was getting out of bed she developed sudden onset vertigo which has been pretty persistent since the outset. The vertigo was so severe that it caused her to fall out of bed. Since that time she has been having to hold onto things to walk to prevent falls. Vertigo is worse with movement, especially when she sits up from a supine position. When her symptoms started she had a whooshing sensation in her ears but now ?I h
--- NOTE | 2024-03-18 17:18 | PM.DS ---
DS: Admitting Diagnosis Discharge Date 03/18 Admitting Diagnosis Dizziness DS: Discharge Diagnosis Discharge Diagnosis (1) Leukocytosis: Code(s): D72.829 - Elevated white blood cell count, unspecified Status: Acute (2) Pneumonia: Code(s): J18.9 - Pneumonia, unspecified organism Status: Acute (3) Elevated troponin: Code(s): R79.89 - Other specified abnormal findings of blood chemistry Status: Acute (4) Vertigo: Code(s): R42 - Dizziness and giddiness Status: Acute (5) Severe protein-calorie malnutrition: Code(s): E43 - Unspecified severe protein-calorie malnutrition Status: Acute Plan (1) Leukocytosis: Code(s): D72.829 - Elevated white blood cell count, unspecified Status: Acute Assessment and Plan: WBC 93.1 POA CBC likely suspicious of CLL Lymphadenopathy noted on CT scan Poor appetite recent weight loss Oncology consulted Will likely need biopsy of lymph node or bone marrow biopsy (2) Pneumonia: Code(s): J18.9 - Pneumonia, unspecified organism Status: Acute Assessment and Plan: Pneumonia Bronchodilators. Chest x-ray/ctA reviewed incentive spirometry while awake. influenza/COVID/RSV negative Cefepime and azithromycin Smoking cessation counseling done CMP/CBC daily Mucolytics (3) Elevated troponin: Code(s): R79.89 - Other specified abnormal findings of blood chemistry Status: Acute Assessment and Plan: Troponin peaked at 0.098 Denied CP Cardiology consulted Echocardiogram pending Continues cardiac monitoring Lipid panel (4) Vertigo: Code(s): R42 - Dizziness and giddiness Status: Acute Assessment and Plan: CT head negative MRI with no acute issues Likely secondary to dehydration, malnutrition and possible CLL Vestibular PT orthostatics negative Meclizine p.r.n. (5) Severe protein-calorie malnutrition: Code(s): E43 - Unspecified severe protein-calorie malnutrition Status: Acute Assessment and Plan: Likely secondary to patient's potential CLL diagnosis Dietitian consulted Dietary supplements added Megace added Protein shakes with each meal Patient states she smokes marijuana at home to help with her appetite DS: Summary Hospital Course Reason for hospitalization: Pneumonia Hospital Course: This is a pleasant 73-year-old female with no reported medical history however she admits she has not seen a doctor in decades who presented to the emergency department via private vehicle accompanied by her daughter for evaluation of dizziness. About 4 days ago when she was getting out of bed she developed sudden onset vertigo which has been pretty persistent since the outset. The vertigo was so severe that it caused her to fall out of bed. Since that time she has been having to hold onto things to walk to prevent falls. Vertigo is worse with movement, especially when she sits up from a supine position. When her symptoms started she had a whooshing sensation in her ears but now ?I hear crickets in them.? She has had some nausea as well. Her appetite has not been great and in fact she has lost about 12 lb in unknown time frame. She has sweats, especially at night, but has not had a fever. She denies syncope, near syncope, visual changes, facial droop, difficulty speaking and swallowing, focal weakness, paresthesias, sensations of racing heart, palpitations, and vomiting. She has not noticed any swollen lymph nodes. In the ED: Vital sounds on arrival include a blood pressure 155/80, pulse 61, respiratory 18, pulse ox 98% room air, temperature 97.8?. EKG showed sinus bradycardia with sinus arrhythmia, left ventricular hypertrophy with ST-T change, cannot rule out septal infarct. Head CT showed no acute intracranial findings. Labs were significant for WBC count of 93.1 with 90% neutrophils and smudge cells
[2024-03-18 18:20] LABS: Lactate Dehydrogenase 304 U/L (120-246)
== END 2024-03-18 17:25 | disposition home or self-care (01) ==
LOC: ANHED 15:29 → ANHIMU 19:18
PROVIDERS: Physician Assistant; Registered Nurse; Admitting Provider General Practice; Emergency Provider Emergency Medicine; PCP Internal Medicine; Visit Provider Nurse Practitioner Acute Care
DX: D72.829 Elevated white blood cell count, unspecified (principal); J18.9 Pneumonia, unspecified organism; R42 Dizziness and giddiness; I49.9 Cardiac arrhythmia, unspecified; E43 Unspecified severe protein-calorie malnutrition; R79.89 Other specified abnormal findings of blood chemistry; I10 Essential (primary) hypertension; J45.909 Unspecified asthma, uncomplicated; F17.290 Nicotine dependence, other tobacco product, uncomplicated; Z79.82 Long term (current) use of aspirin
CPT/HCPCS: 36415; 70450; 70551; 71275; 80048; 80053; 80061; 81001; 83605; 83615; 83735; 84100; 84145; 84443; 84484; 84550; 85025; 85027; 85055; 86880; 87040; 87493; 88184; 93005; 93306; 93880; 94640; 96365; 96367; 99285; A9270; G0378; J0360; J0456; J0692; J0696; J7030; Q9967

== ENCOUNTER 2024-04-02 14:11 | Outpatient (CLI) | payer MEDICARE, SELFPAY ==
--- NOTE | ~2024-04-02 | CT_ITS ---
EXAMINATION: CT chest abdomen pelvis w con DATE: 04/02/2024 14:52 INDICATION: Chronic lymphocytic leukemia. TECHNIQUE: Computed tomography (CT) of the chest, abdomen, and pelvis was performed with 100 mL Omnip aque 350 intravenous contrast. Automated exposure control and iterative reconstruction technique were employed. The dose-length product was 233.63 mGy-cm. COMPARISON: Chest CT 03/16/2024 FINDINGS: CHEST CT: There is severe emphysema. There is mild atelectasis bilaterally. There is mild scarring at the lung apices. Calcified pulmonary nodules and calcified hilar and mediastinal lymph nodes are consistent wi th old granulomatous disease. No pleural effusion. There is a 6 mm nodule in the thyroid, likely not clinically significant. The heart size is normal. There are coronary artery calcifications. No perica rdial effusion. There is mild mediastinal and bilateral hilar lymphadenopathy. There is mild right ax illary and right subpectoral lymphadenopathy. For example, a right axillary node measures 2.2 x 1.9 c m. There is mild thoracic spondylosis. There is a chronic compression fracture of T12. ABDOMEN/PELVIS CT: The liver, spleen, gallbladder, pancreas, and adrenal glands are normal. There is cortical thinning i n the kidneys. There is diverticulosis of the colon without evidence of diverticulitis. There are no dilated loops of bowel. The appendix is normal. There is calcified atherosclerosis of the aorta and m any of the other arteries. There is gastrohepatic, periportal, mesenteric, aortocaval, left para-aort ic, bilateral common iliac, bilateral internal iliac, and bilateral external iliac lymphadenopathy. T he lymphadenopathy is most bulky in the mesenteric chain. For example, a mesenteric raul mass measur es 8.6 x 5.5 cm. There is mild lumbar spondylosis. IMPRESSION: 1. Lymphadenopathy in the chest, abdomen, and pelvis. Reviewed, dictated and finalized at location A.
== END 2024-04-02 14:12 | disposition home or self-care (01) ==
PROVIDERS: PCP Nurse Practitioner Family; Visit Provider Internal Medicine Hematology & Oncology
DX: C91.10 Chronic lymphocytic leukemia of B-cell type not having achieved remission (principal); R59.0 Localized enlarged lymph nodes
CPT/HCPCS: 36415; 71260; 74177; 87340; Q9967

== ENCOUNTER 2024-04-02 14:59 | Outpatient (CLI) | payer MEDICARE, SELFPAY ==
[2024-04-02 17:39] LABS: Hepatitis B Surface Antigen Negative (Negative)
== END 2024-04-02 15:00 | disposition home or self-care (01) ==
PROVIDERS: PCP Nurse Practitioner Family; Visit Provider Internal Medicine Hematology & Oncology
DX: Z11.59 Encounter for screening for other viral diseases (principal)
CPT/HCPCS: 36415; 87340

== ENCOUNTER 2024-04-20 01:42 | Day surgery (SDC) | payer MEDICARE, SELFPAY ==
[2024-04-14 08:24] VITALS: BMI 17.6
--- NOTE | 2024-04-14 08:53 | PC.NURSE ---
Report to the Outpatient Waiting Room, entrance under the green pavilion located off [facility], at time ___11:00AM____ on date ___04/20/24____. Planned Procedure Time: __1:00PM .? Time changes happen often and if your time is changed the preop area will call you the afternoon before. - You and your visitor will be asked to self-screen and do not enter if you have any COVID symptoms. Please call surgeon if you need to reschedule. - A mask is optional within the hospital at this time. Patients may have clear liquids (water, carbonated beverages, clear teas, apple juice) until 3 hours prior to surgery with a maximum of 20 ounces. - No food from midnight until time of surgery and no smoking. Take only the following medications with a SIP of water on the morning of surgery: NONE DO NOT STOP ANY OF YOUR OTHER PRESCRIPTION MEDICATIONS PRIOR TO SURGERY EXCEPT THE FOLLOWING Medications to discontinue per physician NONE Date to take last dose Please no make-up, nail icelandic, hairspray, perfume, deodorant, or body powder the day of surgery.? No jewelry (including any body piercings) or valuables the day of surgery, leave them at home.? Please take a shower or bath the night before, or the morning of, surgery with an antibacterial soap.? Wear comfortable, loose fitting clothing.? - Jewelry must be removed prior to entering the operating room.? Rings and piercings that are not removed may be cut off. - The hospital will not accept responsibility for valuables.? - Please leave all valuables, including medications, at home the day of surgery. If you are going home after surgery, a licensed mechanic driver must drive you home.? - NO public transportation without another adult if you receive anesthesia. - We recommend that an adult stay with you for 24 hours following discharge. - We also recommend that you do not drive, make important decision, drink alcoholic beverages, or take any drugs that were not prescribed by your health care provider for at least 24 hours after your discharge time. Follow any additional instructions given to you from your surgeon. Telephone instructions given to ____PATIENT and asked if any additional questions and then verbalized understanding. Patient advised to call surgeon office or pre surgery nurse liaison [phone] if any additional questions.
--- NOTE | ~2024-04-20 | XR_ITS ---
EXAMINATION: XR fl guide central line place DATE: 04/20/2024 14:22 INDICATION: Port catheter insertion TECHNIQUE: Single fluoroscopic image of the central chest was obtained during procedure performed by Dr. Harrison. Radiologist was not present for the imaging or procedure. The amount of fluoroscopy time u sed during this procedure was 0.1 minutes. Total DAP was 0.0177 mGym^2 COMPARISON: None. FINDINGS: Left internal jugular central venous port catheter with distal tip at the superior cavoatrial junctio n. Visualized portion of the lungs are clear. Cardiomediastinal silhouette is normal. IMPRESSION: 1. Fluoroscopy utilized during placement of a left internal jugular central venous port catheter with distal tip at the and superior cavoatrial junction. See procedure note for further detail. Reviewed, dictated and finalized at location A. IMPRESSION: 1. Fluoroscopy utilized during placement of a left internal jugular central rivas ous port catheter with distal tip at the and superior cavoatrial junction. See procedure note for further detail.
--- NOTE | ~2024-04-20 | XR_ITS ---
XR chest port-a-cath/central Ordering provider: Danielle Harrison MD History: 73 years Female with . POST-OP, INSERTION CM CATH . Comparison: None. FINDINGS: MEDIASTINUM: The cardiac silhouette is not enlarged. Left Port-A-Cath with the tip overlying the supe rior vena cava. Prominent both harman. LUNGS: No effusions or pneumothorax. Prominent markings in the lower lobes bilaterally. Nodule is see n in the left lower lobe area. Further evaluation with CT scan is advised. OTHER: No free air under the diaphragm. IMPRESSION: No acute cardiopulmonary pathology. Nodule in the left lower lobe area laterally. CT evaluation advis ed. Reviewed, dictated and finalized at location A. IMPRESSION: No acute cardiopulmonary pathology. Nodule in the left lower lobe area laterall y. CT evaluation advised.
[2024-04-20 12:06] VITALS: BP 166/63; PULSE 75; RESP 16; TEMP 36.1; O2SAT 100
[2024-04-20] MEDS: LACTATED RINGERS 1,000 ML 30 ML IV CONT (12:06)
--- NOTE | 2024-04-20 12:28 | PM.IMHP ---
H&P: HPI History of Present Illness Date/Time: 04/20/24 12:28 Chief Complaint: CLL Narrative: The patient is a 73-year-old female presenting to the hospital for port placement. The patient with recently diagnosed CLL and is going to undergo chemotherapy. The patient denies any previous central venous catheterization. The patient reports that she is right-handed and sleeps on her right side. Review of Systems Review of Systems: All systems reviewed & are unremarkable except as noted in HPI and below PMFSH Past Medical History Medical History Nicotine-filled electronic cigarette user Surgical History Surgical History History of open reduction and internal fixation (ORIF) procedure Repair left ankle fracture. Family History Family History Father Acute myocardial infarction Asthma Chronic obstructive pulmonary disease Hypertension Mother Pacemaker Asthma Hypertension Sibling Asthma Chronic obstructive pulmonary disease Hypertension Social History Social History Social History: Surrogate medical decision maker: Taina Hung, daughter. Code status: Full code. Smoking packs per day: 2.5 Smoking cigarettes per day: 50.0 Years smoked: 60 Smoking pack-years: 150.00 Smoking status: Current every day smoker Tobacco type: cigarettes and e-cigarettes/vaping Additional smoking assessment comments: JUST STOPPED 03/15/24, TRYING NOT TO RESTART Alcohol intake: current Drinks per week: 14 Alcohol use details: 7 BEERS/DAY, STOPPED WHEN HOSPITALIZED 03/2024. STARTED WINE COOLERS, 2/DAY. Substance use: current Substance use type: marijuana Last use: t Do You Feel Safe in your Home?: Yes Lack of Transportation: No Lack of Food: Never True Current Housing: I Have Housing Concerned About Future Housing: No Difficulty Paying Gas/Electric Bills: No Difficulty Paying for Meds: No Currently Unemployed: No Education: Grade School Difficulty w/ Childcare or Family Care: No Living arrangements: with family Spiritual care concerns: No Meds Home Medications and Allergies Home Medications Medication Instructions Recorded Confirmed Type megestrol 40 mg tablet 40 mg PO QID #90 tabs 03/18/24 04/20/24 Rx losartan 25 mg tablet 25 mg PO QAM #90 tabs 04/16/24 04/20/24 Rx Allergies Allergy/AdvReac Type Severity Reaction Status Date / Time meperidine [From Demerol] Allergy Severe PASS-OUT/Un Verified 04/20/24 11:57 responsive Vital Signs Vital Signs - 24 hr 04/20/24 12:06 Temperature 36.1 C L Pulse Rate 75 Respiratory Rate 16 Blood Pressure 166/63 H Pulse Oximetry 100 Oxygen Delivery Room Air Exam Const: General: cooperative, comfortable, no acute distress and ill appearing Resp: Auscultation: clear to auscultation bilaterally Cardio: Rate: regular rate Rhythm: regular rhythm GI: Inspection: normal to inspection Assessment and Plan Assessment and plan (1) CLL (chronic lymphocytic leukemia): Code(s): C91.10 - Chronic lymphocytic leukemia of B-cell type not having achieved remission Status: Acute Assessment and Plan: will set up for placement of port in the operating room
--- NOTE | 2024-04-20 12:30 | WPDHPUPDATE1 ---
History and Physical Update Update Date/Time: 04/20/24 12:30 History and Physical has been reviewed, including an updated exam of the patient. There are NO changes in the patient's condition. Risks, benefits, and alternatives have been discussed and questions answered. Patient agrees to proceed with procedure.
--- NOTE | 2024-04-20 12:46 | WPDANESEPPF ---
Anes - Initial Pre Proc Eval Procedure: Operation Date: 04/20/24 13:00 Proposed Procedures p Insertion Ava Cath - Danielle Harrison MD Date/Time: 04/20/24 12:46 Surgeon: Danielle Harrison MD Pre Op Diagnosis: chronic lymphocytic leukemia Patient Data Age: 73 Gender: F Height: 1.52 m Weight: 41.8 kg Last Vital Signs Temp 97.0 F L 04/20/24 12:06 Pulse 75 04/20/24 12:06 Resp 16 04/20/24 12:06 BP 166/63 H 04/20/24 12:06 Pulse Ox 100 04/20/24 12:06 O2 Del Method Room Air 04/20/24 12:06 Allergies Allergy/AdvReac Type Severity Reaction Status Date / Time meperidine [From Demerol] Allergy Severe PASS-OUT/Un Verified 04/20/24 11:57 responsive Home Medications Medication Instructions Recorded Confirmed Type megestrol 40 mg tablet 40 mg PO QID #90 tabs 03/18/24 04/20/24 Rx losartan 25 mg tablet 25 mg PO QAM #90 tabs 04/16/24 04/20/24 Rx Patient hx anesthesia problems: none Family hx anesthesia problems: none Results Review: All pre-operative results and documents have been reviewed as part of the pre-operative evaluation. [facility] Past Medical History Medical History Nicotine-filled electronic cigarette user Surgical History Surgical History History of open reduction and internal fixation (ORIF) procedure Repair left ankle fracture. Family History Family History Father Acute myocardial infarction Asthma Chronic obstructive pulmonary disease Hypertension Mother Pacemaker Asthma Hypertension Sibling Asthma Chronic obstructive pulmonary disease Hypertension Social History Social History Social History: Surrogate medical decision maker: Taina Hung, daughter. Code status: Full code. Smoking packs per day: 2.5 Smoking cigarettes per day: 50.0 Years smoked: 60 Smoking pack-years: 150.00 Smoking status: Current every day smoker Tobacco type: cigarettes and e-cigarettes/vaping Additional smoking assessment comments: JUST STOPPED 03/15/24, TRYING NOT TO RESTART Alcohol intake: current Drinks per week: 14 Alcohol use details: 7 BEERS/DAY, STOPPED WHEN HOSPITALIZED 03/2024. STARTED WINE COOLERS, 2/DAY. Substance use: current Substance use type: marijuana Last use: t Do You Feel Safe in your Home?: Yes Lack of Transportation: No Lack of Food: Never True Current Housing: I Have Housing Concerned About Future Housing: No Difficulty Paying Gas/Electric Bills: No Difficulty Paying for Meds: No Currently Unemployed: No Education: Grade School Difficulty w/ Childcare or Family Care: No Living arrangements: with family Spiritual care concerns: No Anes - Eval Final PreProcedure Day of Procedure 04/20/24 12:46 Patient weight: cachectic and thin Heart: regular rate and rhythm Lungs: clear to auscultation Airway: Mallampati scale and special considerations (Edentulous. ) Neurological: alert and oriented Last oral intake: >/= 8 hours ASA classification: III Emergent: no Anesthetic plan: proceed Anesthesia type and monitoring: general GIVS, regional and standard monitoring Results Review: All pre-operative results and documents have been reviewed as part of the pre-operative evaluation. HTN, hx of smoking, now E cigs, now CLL for portacath. Informed Consent: The patient's anesthetic plan and its attendant risks and benefits were discussed with the patient/family/POA. Questions were solicited and answers provided to the satisfaction of the patient/family/POA.
[2024-04-20] MEDS: ceFAZolin 2 GM/D5W 50 ML 2 GM/50 ML BAG IVPB (13:33)
[2024-04-20] MEDS: HEPARIN SODIUM, PORCINE 10,000 UNITS/10 ML VIAL 3000 UNITS IRRIGATION (13:33)
[2024-04-20] MEDS: BUPIVACAINE/EPINEPHRINE 0.5% 50 ML VIAL 30 ML INFILTRATE (13:33)
[2024-04-20] MEDS: HEPARIN SODIUM 5,000 UNITS/ML VIAL 5000 UNITS IRRIGATION (13:33)
[2024-04-20 14:15] VITALS: BP 131/61; PULSE 79; RESP 16; O2SAT 96
--- NOTE | 2024-04-20 14:15 | W.PM.PROC2 ---
Procedure Note - Detailed Date of Procedure 04/20/24 Pre-op Diagnosis chronic lymphocytic leukemia Post-op Diagnosis Same Procedure Performed Placement of left internal jugular venous access device under both ultrasound and fluoroscopic guidance Surgeon Danielle Harrison MD Anesthesia MAC and Local Indications 73-year-old female with CLL needing access for chemotherapy Findings 1st stick left IJ Description of Procedure Patient was brought into the operating room and placed in the supine position. After adequate induction of mac anesthesia, the patient was prepped and draped in normal sterile fashion. Time-out was then done to verify the patient's identity, as well as the procedure being performed. I began by localizing an area in the left neck. I then used the ultrasound to gain access into the left internal jugular vein. Once access was gained, I placed the guidewire in the vein and confirmed proper positioning. I then locally anesthetized the area in the left chest. I then enlarged the incision including making a subcutaneous pocket inferiorly to allow placement of the port itself. I proceeded to tunnel the catheter from the chest to the left neck insertion site. I then placed a dilating sheath over the guidewire into the left internal jugular vein via sterile Seldinger technique. This was once again done and confirmed via fluoroscopic guidance. I then removed the dilator and the guidewire, now just leaving the sheath in the vein. I then fed the previously flushed catheter into the left internal jugular vein under fluoroscopic guidance. At approximately 26 cm, the catheter was noted to be near the atrial caval junction. I then peeled away the sheath, now just leaving the catheter in the vein. I then was able to easily draw and flush from the catheter. The catheter was cut to fit and attached to the port itself. The port was placed into the previously made subcutaneous pocket and sutured in with 0 Ethibond suture. Final fluoroscopic view showed the termination of the catheter at the atrial caval junction with a nice smooth curvature back to the port itself. I was able to gain access to the port with a Guerrier needle and was able to easily draw and flush from the port. I then flushed 4 cc of a final heparin flush into the port. The incision was closed with 3 0 Vicryl suture in the subcutaneous tissue and the skin was closed with 4 O Monocryl subcuticular suture. Dermabond was then placed on wound. The patient tolerated the procedure well and will be sent to the recovery room in stable condition. Implants left internal jugular venous access device Estimated Blood Loss 5 Pathology None sent Complications No immediate complications Condition Stable Disposition PACU [facility] Billing Surgery - Charge Forward: Surgery Billing
[2024-04-20 14:45] VITALS: BP 161/78; PULSE 70; RESP 17
[2024-04-20 15:15] VITALS: BP 171/81; PULSE 72; RESP 18
== END 2024-04-20 15:20 | disposition home or self-care (01) ==
PROVIDERS: PCP Nurse Practitioner Family; Visit Provider Surgery
PROC: (CPT 36561; principal; 2024-04-20 13:00)
DX: C91.10 Chronic lymphocytic leukemia of B-cell type not having achieved remission (principal); F17.290 Nicotine dependence, other tobacco product, uncomplicated; F12.90 Cannabis use, unspecified, uncomplicated; Z98.890 Other specified postprocedural states; Z82.49 Family history of ischemic heart disease and other diseases of the circulatory system
CPT/HCPCS: 36561; 77001; C1788; J0690; J1644; J2003; J2704; J3010; J7120

== ENCOUNTER 2024-04-21 11:57 | Outpatient (CLI) | payer MEDICARE, SELFPAY ==
[2024-04-21 12:18] LABS: Basophils Absolute Auto 0.1 K/mm3 (0.0-0.1); Eosinophils Absolute Auto 0.4 K/mm3 (0-0.3); Eosinophils Percent Auto 0.2 % (0-4.4); Hemoglobin 9.7 g/dL (12.0-15.0); Immature Granulocyte Percent A 0.3 % (0-0.5); Lymphocytes Absolute Auto 156.95 K/mm3 (0.9-3.2); Mean Corpuscular HGB Conc 31.3 g/dl (32-36); Mean Corpuscular Hemoglobin 31.4 pg (26-34); Mean Corpuscular Volume 100.3 fl (80-100); Mean Platelet Volume 10.1 fl (7.4-10.4); Monocytes Percent Auto 6.3 % (2.6-8.5); Neutrophils Absolute Auto 5.4 K/mm3 (1.3-6.7); Neutrophils Percent Auto 3.2 % (45.5-73.1); Platelet Count Result 124 k/mm3 (150-375); Red Blood Count 3.09 M/mm3 (4.2-5.4); Red Cell Distribution Width 14.6 % (11.5-14.5)
[2024-04-21 12:33] LABS: White Blood Count 174.4 K/mm3 (4.5-10.0)
[2024-04-21 12:36] LABS: Atypical Lymphocytes Present; Platelet Estimate Decreased (Adequate); Schistocytes None Seen; Smudge Cells FEW
[2024-04-21 13:33] LABS: Partial Thromboplastin Time 24.4 Seconds (22.3-36.8); Prothrombin Time 14.1 Seconds (11.1-14.7)
== END 2024-04-21 11:58 | disposition home or self-care (01) ==
LOC: ANHLAB 11:59
PROVIDERS: Surgery; PCP Nurse Practitioner Family; Visit Provider Internal Medicine Hematology & Oncology
DX: C91.10 Chronic lymphocytic leukemia of B-cell type not having achieved remission (principal)
CPT/HCPCS: 36415; 85025; 85610; 85730

== ENCOUNTER 2024-07-23 07:53 | Emergency (ER) | payer MEDICARE, SELFPAY ==
[2024-07-23] VITALS (7 sets, daily range): BP systolic 156–204; BP diastolic 62–80; PULSE 79–99; RESP 20–29; TEMP 36.6; O2SAT 93–97
--- NOTE | ~2024-07-23 | XR_ITS ---
Clinical Indication: Shortness of breath PA and lateral views of the chest: Comparison: 04/20/2024 Findings: Stable left-sided Mediport. The lungs are clear, without evidence of focal consolidation or pleural effusion. Cardiomediastinal silhouette is within normal limits. Mild compression fracture o f T12 present. Impression: Clear lungs. Stable Mediport. Mild T12 compression fracture. Reviewed, dictated and finalized at location . L FREEZING MACHINE OPERATOR Impression: Clear lungs. Stable Mediport. Mild T12 compression fracture.
[2024-07-23 08:32] LABS: Basophils Percent Auto 0.5 % (0.2-1.2); Eosinophils Absolute Auto 0.1 K/mm3 (0-0.3); Eosinophils Percent Auto 1.7 % (0-4.4); Hemoglobin 14.2 g/dL (12.0-15.0); Immature Granulocyte Absolute 0.05 K/mm3 (0.00-0.031); Immature Granulocyte Percent A 0.9 % (0-0.5); Immature Platelet Fraction Pct 3.4 % (0.9-11.2); Lymphocytes Absolute Auto 0.73 K/mm3 (0.9-3.2); Lymphocytes Percent Auto 12.7 % (18.3-44.2); Mean Corpuscular HGB Conc 33.8 g/dl (32-36); Mean Corpuscular Volume 103.4 fl (80-100); Monocytes Absolute Auto 0.7 K/mm3 (0.1-0.6); Monocytes Percent Auto 11.3 % (2.6-8.5); Neutrophils Absolute Auto 4.2 K/mm3 (1.3-6.7); Neutrophils Percent Auto 72.9 % (45.5-73.1); Platelet Count Result 138 k/mm3 (150-375); Red Blood Count 4.06 M/mm3 (4.2-5.4); Red Cell Distribution Width 13.9 % (11.5-14.5); White Blood Count 5.8 K/mm3 (4.5-10.0)
--- NOTE | 2024-07-23 08:37 | ED_ITS ---
HPI - SOB/Dyspnea General Chief Complaint: Shortness of Breath/Dyspnea Stated Complaint: I think I have the flu Time Seen by Provider: 07/23/24 08:34 Source: patient History of Present Illness HPI Narrative: 73 years old white female came to the ED by private car complaining of nasal congestion, postnasal discharge, productive cough of clear sputum and shortness of breath for the last 48 hours. Patient reported that she lives with her daughter who had similar symptoms. History of COPD, does not smoke, not on oxygen. She denies any fever or chills or nausea or vomiting or chest pain Related Data Home Medications ?Medication ?Instructions ?Recorded ?Confirmed ?Last Taken ?Type acyclovir 400 mg tablet 400 mg PO Q12H 04/22/24 06/29/24 Unknown History lidocaine-prilocaine 2.5 %-2.5 % 1 applic topical ONCE PRN port 04/22/24 06/02/24 Unknown History topical cream access loperamide 2 mg capsule 2 mg PO PRN PRN Diarrhea 04/22/24 06/02/24 Unknown History ondansetron 8 mg disintegrating 8 mg PO PRN PRN Nausea 04/22/24 06/02/24 Unknown History tablet sulfamethoxazole 800 1 tablet PO 3XW 04/22/24 06/29/24 Unknown History mg-trimethoprim 160 mg tablet megestrol 400 mg/10 mL (40 mg/mL) 400 mg PO DAILY 06/29/24 06/29/24 Unknown History oral suspension Allergies Allergy/AdvReac Type Severity Reaction Status Date / Time meperidine (From Demerol) Allergy Severe PASS-OUT/Un Verified 06/30/24 10:43 responsive Review of Systems 2 Review of Systems: All systems reviewed & are unremarkable except as noted in HPI and below PMFSH Past Medical History Medical History Nicotine-filled electronic cigarette user Surgical History Surgical History History of open reduction and internal fixation (ORIF) procedure Repair left ankle fracture. Family History Family History Father Acute myocardial infarction Asthma Chronic obstructive pulmonary disease Hypertension Mother Pacemaker Asthma Hypertension Sibling Asthma Chronic obstructive pulmonary disease Hypertension Social History Social History Social History: Surrogate medical decision maker: Taina Hung, daughter. Code status: Full code. Smoking packs per day: 2 Smoking cigarettes per day: 40.0 Years smoked: 3 Smoking pack-years: 6.00 Smoking status: Former smoker Tobacco type: cigarettes and e-cigarettes/vaping Additional smoking assessment comments: JUST STOPPED 03/15/24, TRYING NOT TO RESTART Alcohol intake: current Drinks per week: 14 Alcohol use details: 7 BEERS/DAY, STOPPED WHEN HOSPITALIZED 03/2024. STARTED WINE COOLERS, 2/DAY. Substance use: current Substance use type: marijuana Last use: t Do You Feel Safe in your Home?: Yes Lack of Transportation: No Lack of Food: Never True Current Housing: I Have Housing Concerned About Future Housing: No Difficulty Paying Gas/Electric Bills: No Difficulty Paying for Meds: No Currently Unemployed: No Education: Grade School Difficulty w/ Childcare or Family Care: No Living arrangements: with family Spiritual care concerns: No Exam 2 Narrative: General appearance: Well-developed, well-nourished Skin: Normal color Head: Normocephalic, nontraumatic Eyes: Clear conjunctiva ENT: Oropharynx normal, ears normal, nose normal Neck: Supple, nontender Chest and respiratory: Airway patent, no respiratory distress, no accessory muscle use few scattered rhonchi and wheezing bilaterally Heart: Regular rate/rhythm Abdomen: Soft, nontender, no organomegaly, quiet bowel sounds Musculoskeletal: Normal range of motion, nontender back Neurologic: Alert and oriented ?3, PROMOTIONS EXECUTIVE PRODUCER is normal as tested, no gross motor deficit Course Vital Signs Vital signs: Vital Signs Temperature 36.6 C 07/23/24 08:10 Pulse Rate 94 07/23/24 08:10 Respiratory Rate 24 H 07/23/24 08:10 Blood Pressure 204/77 H 07/23/24 08:10 Pulse Oximetry 96 07/23/24 08:10 Oxygen Delivery Room Air 07/23/24 08:10 Temperature 36.6 C 07/23/24 08:10 Pulse Rate 90 07/23/24 10:16 Respiratory Rate 29 H 07/23/24 10:16 Blood Pressure 164/68 H 07/23/24 10:16 Pulse Oximetry 96 07/23/24 10:16 Oxygen Delivery Room Air 07/23/24 08:25 MDM - SOB/Dyspnea MDM Narrative Medical decision making narrative: Patient presents with upper respiratory viral infection like symptoms History of COPD Vital signs showing a blood pressure 204/77, respiratory rate 24, otherwise insignificant abnormalities Physical examination consistent with wheezing and rhonchi bilaterally Differential diagnosis includes COPD exacerbation, upper respiratory viral infection, pneumonia, pleural effusion, congestive heart failure Blood workup today includes CBC, CMP, troponin, LACTIC ACID showed LACTIC ACID OF 2.1, OTHERWISE INSIGNIFICANT ABNORMALITY Blood gas on room air showed PH 7.4, PCO2 28.9 PO2 62.8, OXYGEN SATURATION ON ROOM AIR 93.6 Chest x-ray showed CLEAR LUNG Patient tested POSITIVE FOR INFLUENZA A TAMIFLU 75 MG P.O. GIVEN TO THE PATIENT PRIOR TO DISCHARGE DISCHARGE WITH INFLUENZA A, COPD EXASPERATION ON TAMIFLU AND PREDNISONE ALBUTEROL SOLUTION FOR NEBULIZER TREATMENT Differential Diagnosis Differential diagnosis: Likely other (As above) Medical Records Attestation: I reviewed the patient's medical records. Lab Data Attestation: I reviewed the patient's lab results. 07/23/24 08:21 07/23/24 08:21 Labs: Lab Results 07/23/24 Range/Units 08:21 WBC 5.8 (4.5-10.0) K/mm3 RBC 4.06 L (4.2-5.4) M/mm3 Hgb 14.2 D (12.0-15.0) g/dL Hct 42.0 (37.0-47.0) % MCV 103.4 H (80-100) fl MCH 35.0 H (26-34) pg MCHC 33.8 (32-36) g/dl RDW 13.9 (11.5-14.5) % Plt Count 138 L (150-375) k/mm3 MPV 10.0 (7.4-10.4) fl Immature Gran % (Auto) 0.9 H (0-0.5) % Neut % (Auto) 72.9 (45.5-73.1) % Lymph % (Auto) 12.7 L (18.3-44.2) % Wagoner % (Auto) 11.3 H (2.6-8.5) % Eos % (Auto) 1.7 (0-4.4) % Baso % (Auto) 0.5 (0.2-1.2) % Lymph # (Auto) 0.73 L (0.9-3.2) K/mm3 Wagoner # (Auto) 0.7 H (0.1-0.6) K/mm3 Eos # (Auto) 0.1 (0-0.3) K/mm3 Baso # (Auto) 0.0 (0.0-0.1) K/mm3 Abs Immat Gran (auto) 0.05 H (0.00-0.031) K/mm3 Absolute Neuts (auto) 4.2 (1.3-6.7) K/mm3 Absolute Nucleated RBC 0.000 (0.0-0.012) K/mm3 Nucleated RBC % 0.0 (0.0-0.2) % % Immature Plt Fraction 3.4 (0.9-11.2) % Sodium 141 (137-145) mmol/L Potassium 3.6 (3.4-5.0) mmol/L Chloride 107 (98-107) mmol/L Carbon Dioxide 22 (22-30) mmol/L Anion Gap 12 (4-12) mmol/L BUN 23 H (7-17) mg/dL Creatinine 0.62 L (0.7-1.0) mg/dL Estim Creat Clear Calc 47 ml/min Estimated GFR > 60 (59 - ) Glucose 107 (65-110) mg/dL Lactic Acid 2.1 H (0.7-2.0) mmol/L Calcium 9.9 (8.4-10.2) mg/dL Total Bilirubin 0.9 (0.2-1.3) mg/dL AST 28 (14-36) U/L ALT 19 (6-35) U/L Alkaline Phosphatase 89 (38-126) U/L Total Protein 8.0 (6.3-8.2) g/dL Albumin 5.0 (3.5-5.1) g/dL Influenza A (RT-PCR) Positive A (Negative) Influenza B (RT-PCR) Negative (Negative) RSV (RT-PCR) Negative (Negative) SARS-CoV-2 RNA (RT-PCR) Negative (Negative) ABG Data ABG results: 07/23/24 08:58 Puncture Site Right brachial ABG pH 7.467 H ABG pCO2 28.9 L ABG pO2 62.8 L ABG PO2/FiO2 Ratio 2.99 ABG HCO3 20.4 L ABG O2 Saturation 93.6 L ABG O2 Content 18.0 ABG Base Excess -2.0 A-a Gradient 52.3 Oxyhemoglobin 91.7 Total Hemoglobin 14.0 O2 Delivery Device Room air O2 Liters/Min Not Reportable FiO2 21 Interpretation: OXYGEN SATURATION AT 93.3%, OTHERWISE WITHIN NORMAL LIMIT Imaging Data Radiologist's impression: Impressions Chest X-Ray 07/23/24 08:43 Impression: Clear lungs. Stable Mediport. Mild T12 compression fracture. Critical Care Time Critical Care Time Critical Care Time: No Discharge Plan Discharge Clinical Impression: Influenza A, COPD exacerbation Patient Disposition: Home, Self-Care Condition: Stable Instructions: Influenza (ED), COPD (Chronic Obstructive Pulmonary Disease) (DC) Additional Instructions: RETURN IF SYMPTOMS ARE WORSENING , CALL YOUR FAMILY PHYSICIAN FOR APPOINTMENT, TAKE TYLENOL NEEDED FOR ACHES AND PAIN, CONTINUE HOME MEDICATIONS. Patient Language: Uruguayan Prescriptions: New oseltamivir [Tamiflu] 75 mg capsule 75 mg PO BID Qty: 10 0RF prednisone 20 mg tablet 40 mg PO DAILY 5 Days Qty: 10 0RF albuterol sulfate 2.5 mg /3 mL (0.083 %) solution for nebulization 2.5 mg inhalation Q6H Qty: 90 0RF No Action loperamide 2 mg capsule 2 mg PO PRN PRN (Reason: Diarrhea) acyclovir 400 mg tablet 400 mg PO Q12H sulfamethoxazole-trimethoprim 800-160 mg tablet 1 tablet PO 3XW Patient Comments: Take on Saturday, Saturday, Saturday ondansetron 8 mg tablet,disintegrating 8 mg PO PRN PRN (Reason: Nausea) lidocaine-prilocaine 2.5-2.5 % cream 1 applic topical ONCE PRN (Reason: port access) megestrol 400 mg/10 mL (40 mg/mL) suspension 400 mg PO DAILY Airsupra 90-80 mcg/actuation HFA aerosol inhaler 2 inh inhalation ONCE Qty: 10.7 0RF Rx Instructions: as a single dose; may repeat up to 6 doses per day (12 inhalations) Trelegy Ellipta 200-62.5-25 mcg blister with device 1 inh inhalation Q24H Qty: 60 5RF losartan 25 mg tablet 25 mg PO QAM Qty: 90 3RF Follow-up/Referrals: Thaddeus Esposito MD [Primary Care Provider] -
[2024-07-23 08:42] LABS: Alanine Aminotransferase 19 U/L (6-35); Alkaline Phosphatase 89 U/L (38-126); Anion Gap 12 mmol/L (4-12); Aspartate Amino Transferase 28 U/L (14-36); Bilirubin,Total 0.9 mg/dL (0.2-1.3); Blood Urea Nitrogen 23 mg/dL (7-17); Calcium 9.9 mg/dL (8.4-10.2); Carbon Dioxide 22 mmol/L (22-30); Chloride 107 mmol/L (98-107); Estimated CRCL calculation 47 ml/min; Estimated Glomerular Filt Rate > 60; Glucose 107 mg/dL (65-110); Potassium 3.6 mmol/L (3.4-5.0); Sodium 141 mmol/L (137-145)
[2024-07-23 08:44] LABS: Lactic Acid Reflex 2.1 mmol/L (0.7-2.0)
[2024-07-23 09:06] LABS: Influenza A QL RT-PCR Positive (Negative); Influenza B QL RT-PCR Negative (Negative); RSV RNA, RT-PCR Negative (Negative); SARS-CoV-2 RNA PCR Negative (Negative)
[2024-07-23 09:14] LABS: Alveolar/Arterial O2 Gradient 52.3 mmHg; Fractional Inspired Oxygen 21 %; HCO3 ABG 20.4 mEq/l (22.0-26.0); Oxygen Saturation ABG 93.6 % (95.0-100.0); Oxyhemoglobin 91.7 % THb (90.0-100.0); PCO2 ABG 28.9 mmHg (35.0-45.0); PO2 ABG 62.8 mmHg (80.0-100.0); PO2 FiO2 Ratio Arterial Blood 2.99 %; pH ABG 7.467 (7.350-7.450)
[2024-07-23 09:16] LABS: Device ROOM AIR; Site Drawn RIGHT BRACHIAL
[2024-07-23] MEDS: IPRATROPIUM 0.5 MG/ALBUTEROL SULFATE 2.5 MG AMPUL.NEB 3 ML INHALATION (09:30)
[2024-07-23] MEDS: ONDANSETRON INJ 4 MG/2 ML VIAL IV PUSH (09:31)
[2024-07-23] MEDS: methylPREDNISolone SOD SUCC 125 MG VIAL IV PUSH (09:31)
--- NOTE | 2024-07-23 10:40 | PCRCNOTE ---
At 0840 ABG delayed due to the patient being in the bathroom and vomiting.
[2024-07-23] MEDS: OSELTAMIVIR PHOSPHATE 75 MG CAPSULE PO (10:52)
[2024-07-23 11:28] LABS: Reflex Lactic Acid Yes or No Add Lactic
== END 2024-07-23 11:10 | disposition home or self-care (01) ==
PROVIDERS: Emergency Provider Emergency Medicine; PCP Family Medicine
DX: J10.1 Influenza due to other identified influenza virus with other respiratory manifestations (principal); J44.1 Chronic obstructive pulmonary disease with (acute) exacerbation; Z87.891 Personal history of nicotine dependence; Z20.822 Contact with and (suspected) exposure to COVID-19
CPT/HCPCS: 36415; 36600; 71046; 80053; 82805; 83605; 85018; 85025; 85055; 87040; 87637; 94640; 96374; 96375; 99284; A9270; J2405; J2919

== ENCOUNTER 2024-08-07 16:19 | Emergency (ER) | payer MEDICARE, SELFPAY ==
[2024-08-07] VITALS (40 sets, daily range): BP systolic 141–186; BP diastolic 69–93; PULSE 73–98; RESP 16–27; TEMP 36.4; O2SAT 89–100
--- NOTE | ~2024-08-07 | XR_ITS ---
CHEST RADIOGRAPH CLINICAL HISTORY: dyspnea . COMPARISON: 07/23/2024 TECHNIQUE: Single portable view of the chest. FINDINGS Left internal jugular central venous power port catheter identified with its tip projecting over the cavoatrial junction. The remainder of the cardiomediastinal silhouette is otherwise unremarkable. The lungs are clear. Visualized osseous structures and soft tissues are unremarkable. IMPRESSION: No focal infiltrate or effusion. Reviewed, dictated and finalized at location A. TRANSFER WORKER
--- NOTE | ~2024-08-07 | CT_ITS ---
EXAMINATION: CTA chest PE protocol DATE: 08/07/2024 19:55 ARCHITECTURE TECHNICIAN INDICATION: Shortness of breath TECHNIQUE: Computed tomographic angiography (CTA) of the chest was performed with 100 mL Omnipaque-35 0 intravenous contrast. The dose-length product was 135.11 mGy-cm. Maximum intensity projection 3D-re constructions of the aorta and other arteries were constructed by the technologist on a separate work station. COMPARISON: 04/02/2024. Reference is also made to a plain film evaluation of the chest dated 07/23/2024 . FINDINGS/OBSERVATIONS: PULMONARY ARTERIES: No filling defect is identified within the main or proximal pulmonary artery. The main pulmonary artery is not enlarged. THORACIC AORTA: No aneurysmal dilatation or dissection is present. The great vessels are intact LUNGS: Panlobular emphysematous disease. Right apical scarring, unchanged. Calcified granulomas withi n the right lower lobe along with calcified lymph nodes in the mediastinum suggesting prior granuloma tous disease. MEDIASTINUM: No morphologically suspicious or pathologically enlarged lymph nodes are identified with in the mediastinum or bilateral axilla. BONES OF THE CHEST: Interval development of compression fracture within the vertebral body of T7, not present on the 2 vi ew evaluation of the chest dated 07/23/2024, likely acute. No significant degenerative disease. No lytic or blastic lesions. HEART: The heart is of normal size, without pericardial effusion. Left subclavian central venous port catheter identified extending into the proximal right atrium. IMPRESSION: No pulmonary embolus. No thoracic aortic dissection. Acute/subacute fracture of the T7 vertebral body for which clinical correlation is needed regarding p oint tenderness. This is an interval change since 07/23/2024 Reviewed, dictated and finalized at location A. ITECTURE TECHNICIAN IMPRESSION: No pulmonary embolus. No thoracic aortic dissection. Acute/subacute fracture of the T7 vertebral body for which clinical correlation is needed regarding point tenderness. This is an interval change since 07/23/19 25
--- OUTSIDE RECORDS SUMMARY | 2024-08-07 16:21 | XMS_ITS | Encounter Summary ---
Author Organization [facility] [employer] Address [address] [place] [address] Care Team Providers Care Form Stripper Name Role Phone Gareth Sumner DO Primary Care Provider [phone] Encounter Details Date Type Department Care Team (Late Contact Info) Description 08/03/2024 Orders Only [facility] Oncology and Hematology [facility] [address] [place] [address] Benedicto Israel MD [address] [place], [place] [address] [address] [place] [phone] CLL (chronic lymphocytic leukemia) ([facility]CC) Social History Tobacco Use Types Packs/Day Years Used Date Smoking Tobacco: Former Cigarettes 2 30 Q uit: 03/30/2013 Smokeless Tobacco: Never Comments Unknown Sex and Gender Information Value Date Recorded Sex Assigned at Not on file Legal Sex Female 7:31 AM CDT Gender Identity Not on file Sexual Orientation Not on file documented as of this encounter Plan of Treatment Upcoming Encounters Date Type Department Care Team (Late st Contact Info) Description 09/01/2024 8:30 AM DEPUTY INSURANCE COMMISSIONER Office Visit [facility] Oncology and Hematology [facility] [address] [place] [address] Benedicto Israel MD [email or web address] [place] [phone] documented as of this encounter Visit Diagnoses Diagnosis CLL (chronic lymphocytic leukemia) ([facility]/HCC) Chronic lymphoid leukemia, without mention of having achieved remission documented in this encounter Care Teams Form Stripper Relationship Specialty Start Date End Date Gareth Sumner DO [address] [place] [address] PCP - General Family Practice 03/25/24 documented as of this encounter
--- OUTSIDE RECORDS SUMMARY | 2024-08-07 16:21 | XMS_ITS | Clinical Summary ---
Author Organization [facility] Sonu andrade Ajay Address [address] [place] [address] Care Team Providers Care Draw Frame Tender Name Role Phone Gareth Sumner DO Primary Care Provider [phone] Allergies Active Allergy Reactions Criticality Noted Date Comments Meperidine Shortness of Breath/Wheezing High 024 Medications losartan (COZAAR) 25 mg tablet Take 25 mg by mouth daily. 03/19/20 24 Active sulfamethoxazo le-trimethopri m (BACTRIM DS) 800-160 mg tablet 1 tablet 3 times a week on Saturday and Saturday 36 Tablet 5 05/05/20 24 Active ondansetron (ZOFRAN ODT) 8 mg Tablet, Rapid Dissolve Dissolve 1 tablet on top of tongue then swallow with saliva every 8 hours as needed for nausea or vomiting 30 Tablet 1 05/05/20 24 Active lidocaine-pril ocaine (EMLA) 2.5-2.5 % Cream APPLY QUARTER SIZE AMOUNT TO PORT SITE 30 MINUTES BEFORE ACCESS. 30 Gram 2 06/15/20 24 Active acyclovir (ZOVIRAX) 400 mg tablet Take 1 Tablet (400 mg) by mouth 2 times daily. 180 Tablet 5 07/09/19 25 Active megestroL (MEGACE) 400 mg/10 mL (40 mg/mL) suspension SHAKE LIQUID AND TAKE 10ML (400MG) BY MOUTH DAILY 240 mL 07/27/19 25 Active acyclovir (ZOVIRAX) 400 mg tablet Take 1 Tablet (400 mg) by mouth 2 times daily. 180 Tablet 5 05/05/20 24 025 Discontinued(Re order) megestroL (MEGACE) 400 mg/10 mL (40 mg/mL) suspension SHAKE LIQUID and TAKE 10ML (400MG) BY MOUTH DAILY 240 mL 07/07/19 25 025 Discontinued Active Problems No known active problems Encounters Date Type Department Care Team Description 08/04/2024 8:30 AM POWER HOUSE ENGINEER Office Visit [facility] Oncology and Hematology [facility] [address] [place] [address] Benedicto Israel MD CLL (chronic lymphocytic leukemia) ([facility]) (Primary Dx) 08/03/2024 Orders Only [facility] Oncology and Hematology [facility] [address] [place] [address] Benedicto Israel MD CLL (chronic lymphocytic leukemia) ([facility]) 07/26/2024 Refill [facility] Oncology and Hematology [facility] [address] [place] [address] Benedicto Israel MD 07/23/2024 External Device Data STL ABSTRACTION Provider, Abstract 07/23/2024 Telephone [facility] Oncology and Hematology [facility] [address] [place] [address] Benedicto Israel MD equipment request 07/20/2024 Orders Only [facility] Oncology and Hematology [facility] [address] [place] [address] Benedicto Israel MD CLL (chronic lymphocytic leukemia) ([facility]) 07/09/2024 Refill [facility] Oncology and Hematology [facility] [address] [place] [address] Benedicto Israel MD 07/08/2024 Orders Only [facility] Oncology and Hematology [facility] [address] [place] [address] Benedicto Israel MD 07/07/2024 Refill [facility] Oncology and Hematology [facility] [address] [place] [address] Benedicto Israel MD 07/06/2024 Orders Only [facility] Oncology and Hematology - [address] [place] [phone] Benedicto Israel MD CLL (chronic lymphocytic leukemia) ([facility]) 07/03/2024 Orders Only [facility] Oncology and Hematology - [address] [place] [phone] Benedicto Israel MD 06/29/2024 9:00 AM POWER HOUSE ENGINEER Office Visit [facility] Oncology and Hematology - [address] [place] [phone] Jhonatan Longo MD CLL (chronic lymphocytic leukemia) ([facility]) (Primary Dx) 06/22/2024 Orders Only [facility] Oncology and Hematology - [address] [place] [phone] Benedicto Israel MD CLL (chronic lymphocytic leukemia) ([facility]) 06/15/2024 Refill [facility] Oncology and Hematology - [address] [place] [phone] Benedicto Israel MD 06/08/2024 Orders Only [facility] Oncology and Hematology - [address] [place] [address] Benedicto Israel MD CLL (chronic lymphocytic leukemia) ([facility]) 06/03/2024 Telephone [facility] Oncology and Hematology - [address] [place] [phone] Benedicto Israel MD Insomnia 06/02/2024 External Device Data STL ABSTRACTION Provider, Abstract 06/02/2024 Orders Only [facility] Oncology and Hematology - [place] [address] [place] [address] Benedicto Israel MD 06/01/2024 8:45 AM POWER HOUSE ENGINEER Office Visit [facility] Oncology and Hematology - [place] [place] [address] Benedicto Israel MD CLL (chronic lymphocytic leukemia) ([facility]) (Primary Dx) 05/25/2024 Orders Only [facility] Oncology and Hematology [facility] [address] [place] [address] Benedicto Israel MD CLL (chronic lymphocytic leukemia) ([facility]) 05/11/2024 Orders Only [facility] Oncology and Hematology [facility] [address] [place] [address] Benedicto Israel MD CLL (chronic lymphocytic leukemia) ([facility]) from Last 3 Months Family History Medical History Relation Name Comments Lung Cancer Brother 1 Rectal Cancer Brother 2 No Known Problems Child 1 No Known Problems Child 2 No Known Problems Child 3 Lung Cancer Father Heart Disease Mother No Known Problems Sister 1 No Known Problems Sister 2 No Known Problems Sister 3 Relation Name Status Comments Brother 1 Brother 2 Child 1 Alive Child 2 Alive Child 3 Alive Father Mother Sister 1 Sister 2 Alive Sister 3 Alive Social History Tobacco Use Types Packs/Day Years Used Date Smoking Tobacco: Former Cigarettes 2 30 Q uit: 03/30/2013 Smokeless Tobacco: Never Tobacco Cessation:Counseling Given: Not Answered Comments Unknown Sex and Gender Information Value Date Recorded Sex Assigned at Not on file Legal Sex Female 7:31 AM CDT Gender Identity Not on file Sexual Orientation Not on file Last Filed Vital Signs Vital Sign Reading Time Taken Comments Blood Pressure 161/86 08/04/2024 11:48 AM POWER HOUSE ENGINEER Pulse 109 08/04/2024 11:48 AM POWER HOUSE ENGINEER Temperature 36.4 C (97.5 F) 08/04/2024 11:48 AM POWER HOUSE ENGINEER Respiratory Rate 15 06/29/2024 8:47 AM POWER HOUSE ENGINEER Oxygen Saturation 94% 08/04/2024 11:48 AM POWER HOUSE ENGINEER Inhaled Oxygen Concentration - - Weight 44.1 kg (97 lb 3.2 oz) 08/04/2024 11:48 A M POWER HOUSE ENGINEER Height 152.4 cm (5') 03/30/2024 10:34 AM CDT Body Mass Index 18.98 03/30/2024 10:34 AM CDT Plan of Treatment Upcoming Encounters Date Type Department Care Team (Late st Contact Info) Description 09/01/2024 8:30 AM POWER HOUSE ENGINEER Office Visit [facility] Oncology and Hematology - [place] [facility] [address] [place] [address] Benedicto Israel MD [address] [facility] [address] [place] [address] Health Maintenance Due Date Last Done Comments DTAP/TDAP/TD VACCINES (1 - Tdap) 1969 PNEUMOCOCCAL VACCINE 65+ YEARS (1 of 2 - PCV) 08/16/18 70 ZOSTER VACCINE (1 of 2) 1969 BREAST CANCER SCREENING 1990 COLORECTAL SCREENING 1995 Colorectal Cancer Screening 1995 FIT-DNA Q 3 years 1995 FIT/FOBT Q 1 year 1995 Flex Sig/CT Colonography Q 5 years 1995 RSV VACCINE (60+ or ) (1 - Risk 60-74 years 1-dose series) 2010 OSTEOPOROSIS SCREENING 2015 INFLUENZA VACCINE (#1) 2024 [place] Prev entative Visit/Annual Wellness Visit 07/01/2024 Procedures Procedure Name Priority Date/Time Associated Diagnosis Comments COMPREHENSIVE METABOLIC PANEL Routine 06/29/2024 2:05 PM POWER HOUSE ENGINEER BASIC METABOLIC PANEL Routine 06/29/2024 1:56 PM POWER HOUSE ENGINEER BASIC METABOLIC PANEL Routine 06/01/2024 11:06 AM POWER HOUSE ENGINEER CBC WITH DIFFERENTIAL Routine 06/01/2024 10:57 AM POWER HOUSE ENGINEER COMPREHENSIVE METABOLIC PANEL Routine 06/01/2024 10:53 AM POWER HOUSE ENGINEER from Last 3 Months Results * COMPREHENSIVE METABOLIC PANEL (06/29/2024 2:05 PM POWER HOUSE ENGINEER) Only the most recent of2 resultswithin the time period is included. Blood us Benedicto Israel MD CHEMISTRY ORDERABLES Final Resu lt * BASIC METABOLIC PANEL (06/29/2024 1:56 PM POWER HOUSE ENGINEER) Only the most recent of2 resultswithin the time period is included. Blood us Benedicto Israel MD CHEMISTRY ORDERABLES Final Resu lt * CBC WITH DIFFERENTIAL (06/01/2024 10:57 AM POWER HOUSE ENGINEER) Blood Benedicto Israel MD HEMATOLOGY ORDERABLES Final Res ult from Last 3 Months Insurance Care Teams Draw Frame Tender Relationship Specialty Start Date End Date Gareth Sumner DO [address] [place] [address] PCP - General Family Practice 03/25/24
--- OUTSIDE RECORDS SUMMARY | 2024-08-07 16:21 | XMS_ITS | CONTINUITY OF CARE DOCUMENT ---
Author Name gurdeep mackenzie Address Unknown Organization [facility] Address [address] [place] [address] Phone [phone] Care Team Providers Care Preschool Disability Teacher Name Role Phone VALE JEROME MD Unavailable [phone] VALE JEROME MD Unavailable [phone] INSURANCE PROVIDERS Payer name Policy type / Coverage type [place] red republican ID [id number] PAY
--- NOTE | 2024-08-07 16:35 | ED_ITS ---
HPI - SOB/Dyspnea General Chief Complaint: Shortness of Breath/Dyspnea <Mary Macedo PA-C - Last Filed: 08/07/24 16:41> Stated Complaint: short of breath <Mary Macedo PA-C - Last Filed: 08/07/24 16:41> Time Seen by Provider: 08/07/24 16:34 <Mary Macedo PA-C - Last Filed: 08/07/24 16:41> Focused HPI: 73-year-old female with history of hypertension, CAD, COPD, CLL presents to the ED for dyspnea for 5 days. Patient states she went to her chemotherapy treatment on Saturday and Saturday and since then has been feeling more short of breath. She reports an increase in productive cough with yellow sputum. She is also reporting diffuse rib pain that is worse when she takes a deep breath and with coughing. She reports associated fatigue. Denies fever, lower extremity edema, history of PE. Patient was seen in our ED at the end of July for similar symptoms and diagnosed with a COPD exacerbation and influenza A. Patient states she quit smoking 1 year ago. GENERAL: Well-appearing, well-nourished, and in no acute distress. HEAD: Normocephalic, atraumatic. CHEST: Expiratory wheezing in the lower lung lemos, no rales or rhonchi. Patient satting 97% on room air HEART: Regular rate and rhythm.? NEURO: ?Alert and oriented x3. Patient screened in triage and initial orders placed.? ?Additional care and disposition to be based upon?diagnostic testing and treatment. <Mary Macedo PA-C - Last Filed: 08/07/24 16:41> Focused HPI: 73-year-old female with history of hypertension, CAD, COPD, CLL presents to the ED for dyspnea for 5 days. Patient states she went to her chemotherapy treatment on Saturday and Saturday and since then has been feeling more short of breath. She reports an increase in productive cough with yellow sputum. She is also reporting diffuse rib pain that is worse when she takes a deep breath and with coughing. She reports associated fatigue. Denies fever, lower extremity edema, history of PE. Patient was seen in our ED at the end of July for similar symptoms and diagnosed with a COPD exacerbation and influenza A. Patient states she quit smoking 1 year ago. GENERAL: Well-appearing, well-nourished, and in no acute distress. HEAD: Normocephalic, atraumatic. CHEST: Expiratory wheezing in the lower lung lemos, no rales or rhonchi. Patient satting 97% on room air HEART: Regular rate and rhythm.? NEURO: ?Alert and oriented x3. Patient screened in triage and initial orders placed.? ?Additional care and disposition to be based upon?diagnostic testing and treatment. <Juan Carlos Roberts MD - Last Filed: 08/07/24 21:22> History of Present Illness HPI Narrative: agree with the HPI above. <Juan Carlos Roberts MD - Last Filed: 08/07/24 21:22> Related Data Home Medications: Home Medications ?Medication ?Instructions ?Recorded ?Confirmed ?Last Taken ?Type acyclovir 400 mg tablet 400 mg PO Q12H 04/22/24 07/29/24 Unknown History lidocaine-prilocaine 2.5 %-2.5 % 1 applic topical ONCE PRN port 04/22/24 07/29/24 Unknown History topical cream access loperamide 2 mg capsule 2 mg PO PRN PRN Diarrhea 04/22/24 07/29/24 Unknown History ondansetron 8 mg disintegrating 8 mg PO PRN PRN Nausea 04/22/24 07/29/24 Unknown History tablet sulfamethoxazole 800 1 tablet PO 3XW 04/22/24 07/29/24 Unknown History mg-trimethoprim 160 mg tablet megestrol 400 mg/10 mL (40 mg/mL) 400 mg PO DAILY 06/29/24 07/29/24 Unknown History oral suspension <Mary Macedo PA-C - Last Filed: 08/07/24 16:41> Allergies/Adverse Reactions: Allergies Allergy/AdvReac Type Severity Reaction Status Date / Time meperidine (From Demerol) Allergy Severe PASS-OUT/Un Verified 08/07/24 17:53 responsive <Mary Macedo PA-C - Last Filed: 08/07/24 16:41> Review of Systems 2 Review of Systems: As reviewed above in HPI <Juan Carlos Roberts MD - Last Filed: 08/07/24 21:22> PMFSH Past Medical History Medical History: Medical History Nicotine-filled electronic cigarette user <Mary Macedo PA-C - Last Filed: 08/07/24 16:41> Surgical History Surgical History: Surgical History History of open reduction and internal fixation (ORIF) procedure Repair left ankle fracture. <Mary Macedo PA-C - Last Filed: 08/07/24 16:41> Family History Family History: Family History Father Acute myocardial infarction Asthma Chronic obstructive pulmonary disease Hypertension Mother Pacemaker Asthma Hypertension Sibling Asthma Chronic obstructive pulmonary disease Hypertension <Mary Macedo PA-C - Last Filed: 08/07/24 16:41> Social History Social History: Social History Social History: Surrogate medical decision maker: Taina Hung, daughter. Code status: Full code. Smoking packs per day: 2 Smoking cigarettes per day: 40.0 Years smoked: 3 Smoking pack-years: 6.00 Smoking status: Former smoker Tobacco type: cigarettes and e-cigarettes/vaping Additional smoking assessment comments: JUST STOPPED 03/15/24, TRYING NOT TO RESTART Alcohol intake: current Drinks per week: 14 Alcohol use details: 7 BEERS/DAY, STOPPED WHEN HOSPITALIZED 03/2024. STARTED WINE COOLERS, 2/DAY. Substance use: current Substance use type: marijuana Last use: t Do You Feel Safe in your Home?: Yes Lack of Transportation: No Lack of Food: Never True Current Housing: I Have Housing Concerned About Future Housing: No Difficulty Paying Gas/Electric Bills: No Difficulty Paying for Meds: No Currently Unemployed: No Education: Grade School Difficulty w/ Childcare or Family Care: No Living arrangements: with family Spiritual care concerns: No <RADHA Shane Last Filed: 08/07/24 16:41> Exam 2 Narrative: GENERAL: [Well-appearing, well-nourished, and in no acute distress.] HEAD: [Normocephalic, atraumatic.] EYES: [PERRLA and EOMI.] ENT: Nares clear, no rhinorrhea or epistaxis. Mucous membranes moist. NECK: Supple. CHEST: coarse breath sounds with prolonged expiratory phase and expiratory wheezing. No respiratory distress, no abdominal breathing or accessory muscle use. HEART: [Regular rate and rhythm]. No murmur heard. [Normal peripheral pulses.] ABDOMEN: [Soft, nondistended], [nontender], [No rigidity or guarding] EXTREMITIES: Normal range of motion. [No edema.] SKIN: Warm, dry, no rash. NEURO: [No focal deficits]. Alert and oriented [x3.] PSYCH: [Normal mood and affect.] <Juan Carlos Roberts MD - Last Filed: 08/07/24 21:22> Course Vital Signs Vital signs: Vital Signs Temperature 36.4 C L 08/07/24 16:24 Pulse Rate 82 08/07/24 16:24 Respiratory Rate 20 08/07/24 16:24 Blood Pressure 186/72 H 08/07/24 16:24 Pulse Oximetry 97 08/07/24 16:24 Oxygen Delivery Room Air 08/07/24 16:24 Temperature 36.4 C L 08/07/24 16:24 Pulse Rate 73 08/07/24 19:31 Respiratory Rate 19 08/07/24 19:31 Blood Pressure 149/69 H 08/07/24 19:31 Pulse Oximetry 100 08/07/24 19:31 Oxygen Delivery Room Air 08/07/24 17:51 <Mary Macedo PA-C - Last Filed: 08/07/24 16:41> Vital Signs Temperature 36.4 C L 08/07/24 16:24 Pulse Rate 82 08/07/24 16:24 Respiratory Rate 20 08/07/24 16:24 Blood Pressure 186/72 H 08/07/24 16:24 Pulse Oximetry 97 08/07/24 16:24 Oxygen Delivery Room Air 08/07/24 16:24 Temperature 36.4 C L 08/07/24 16:24 Pulse Rate 73 08/07/24 19:31 Respiratory Rate 19 08/07/24 19:31 Blood Pressure 149/69 H 08/07/24 19:31 Pulse Oximetry 100 08/07/24 19:31 Oxygen Delivery Room Air 08/07/24 17:51 <Juan Carlos Roberts MD - Last Filed: 08/07/24 21:22> MDM - SOB/Dyspnea MDM Narrative Medical decision making narrative: 73-year-old female with history of hypertension, coronary disease, COPD, CLL currently undergoing chemotherapy most recent infusion on Saturday and Saturday. Today she presents to the emergency room with worsening shortness of breath. She was recently diagnosed with influenza several weeks ago, still feeling the symptoms of this and was recently having a COPD exacerbation and was treated with steroids and antibiotics according to her PCP and previous ER visit. She states that she still feeling short of breath presently despite her nebulizer treatments at home and completing her steroids and antibiotics. she otherwise appears normal state of health, is afebrile, slightly hypertensive at 150/71 but no tachycardia tachypnea. She has prolonged expiratory phase with expiratory wheezes appreciated but no signs of respiratory distress. Given her KAREN history and difficulty reading that seems to be minimally responsive to her current treatment plans considerations for other process such as ACS or pneumonia, pulmonary embolism higher. She does have expiratory wheezes with chronic emphysema which could be another COPD exacerbation. She was treated with albuterol ipratropium, laboratory studies were obtained as well as a CT thorax with PE protocol. Chest pain protocol with troponin EKG also obtained. Patient was re-evaluated after the Atrovent and albuterol. She had complete symptomatic resolution is feeling much improved. Patient inquired about treatment plan at home for this and she does not have Atrovent or ipratropium. Given that she has tried her albuterol without any significant improvement but had remarkable improvement with this medication I believe she would benefit from this. Workup today shows no leukocytosis, no anemia. Normal platelet count. normal coagulation studies. Troponin negative, normal electrolyte profile, normal renal function panel. BNP only mildly elevated. Normal LFTs. Tested positive for influenza. Chest x-ray was clear without infiltrates or effusion. CT angiography shows no dissection or pulmonary embolism. There appears to be a subacute or acute fracture of the T7 vertebral body. patient was palpated in this region had no overlying skin changes or reproducible tenderness. She did not have any trauma or injuries. Likely an over read or subacute fracture, not currently causing any symptoms or pain. Given patient's symptomatic improvement with the nebulizer treatments I believe she can be safely discharged home at this time given her stable vital signs, normal blood pressure, normal respiratory rate and pulse rate, no hypoxia. No signs of pneumonia. Family was comfortable with this as well as the patient. They verbalized understanding the strict return precautions in the follow-up instructions with her PCP. She was sent home with regimen of medications including Atrovent, albuterol, steroids, Atrovent nebulizer, ibuprofen for pain control and MiraLax as she was having some constipation. Patient is safe for discharge home at this time. <Juan Carlos Roberts MD - Last Filed: 08/07/24 21:22> Medical Records Attestation: I reviewed the patient's medical records. <Juan Carlos Roberts MD - Last Filed: 08/07/24 21:22> Lab Data Attestation: I reviewed the patient's lab results. <Juan Carlos Roberts MD - Last Filed: 08/07/24 21:22> Result diagrams: 08/07/24 17:07 08/07/24 17:07 <Mary Macedo PA-C - Last Filed: 08/07/24 16:41> Labs: Lab Results 08/07/24 Range/Units 17:07 WBC 2.5 L (4.5-10.0) K/mm3 RBC 3.86 L (4.2-5.4) M/mm3 Hgb 13.5 (12.0-15.0) g/dL Hct 39.4 (37.0-47.0) % MCV 102.1 H (80-100) fl MCH 35.0 H (26-34) pg MCHC 34.3 (32-36) g/dl RDW 13.4 (11.5-14.5) % Plt Count 190 (150-375) k/mm3 MPV 9.5 (7.4-10.4) fl Immature Gran % (Auto) 1.2 H (0-0.5) % Neut % (Auto) 61.6 (45.5-73.1) % Lymph % (Auto) 13.8 L (18.3-44.2) % Storey % (Auto) 19.8 H (2.6-8.5) % Eos % (Auto) 3.2 (0-4.4) % Baso % (Auto) 0.4 (0.2-1.2) % Lymph # (Auto) 0.34 L (0.9-3.2) K/mm3 Storey # (Auto) 0.5 (0.1-0.6) K/mm3 Eos # (Auto) 0.1 (0-0.3) K/mm3 Baso # (Auto) 0.0 (0.0-0.1) K/mm3 Abs Immat Gran (auto) 0.03 (0.00-0.031) K/mm3 Absolute Neuts (auto) 1.5 (1.3-6.7) K/mm3 Absolute Nucleated RBC 0.000 (0.0-0.012) K/mm3 Nucleated RBC % 0.0 (0.0-0.2) % PT 12.8 (11.1-14.7) Seconds INR 0.9 APTT 21.6 L (22.3-36.8) Seconds Sodium 137 (137-145) mmol/L Potassium 4.1 (3.4-5.0) mmol/L Chloride 100 (98-107) mmol/L Carbon Dioxide 28 (22-30) mmol/L Anion Gap 9 (4-12) mmol/L BUN 38 H (7-17) mg/dL Creatinine 0.60 L (0.7-1.0) mg/dL Estim Creat Clear Calc 48 ml/min Estimated GFR > 60 (59 - ) Glucose 102 (65-110) mg/dL Calcium 9.3 (8.4-10.2) mg/dL Magnesium 2.0 (1.6-2.3) mg/dL Total Bilirubin 1.0 (0.2-1.3) mg/dL AST 32 (14-36) U/L ALT 35 (6-35) U/L Alkaline Phosphatase 60 (38-126) U/L Troponin I 0.013 (0.000-0.034) ng/mL NT-Pro-B Natriuret Pep 650 H (19.9-100) pg/mL Total Protein 7.0 (6.3-8.2) g/dL Albumin 3.9 (3.5-5.1) g/dL Influenza A (RT-PCR) Positive A (Negative) Influenza B (RT-PCR) Negative (Negative) RSV (RT-PCR) Negative (Negative) SARS-CoV-2 RNA (RT-PCR) Negative (Negative) <Mary Macedo PA-C - Last Filed: 08/07/24 16:41> Lab Results 08/07/24 Range/Units 17:07 WBC 2.5 L (4.5-10.0) K/mm3 RBC 3.86 L (4.2-5.4) M/mm3 Hgb 13.5 (12.0-15.0) g/dL Hct 39.4 (37.0-47.0) % MCV 102.1 H (80-100) fl MCH 35.0 H (26-34) pg MCHC 34.3 (32-36) g/dl RDW 13.4 (11.5-14.5) % Plt Count 190 (150-375) k/mm3 MPV 9.5 (7.4-10.4) fl Immature Gran % (Auto) 1.2 H (0-0.5) % Neut % (Auto) 61.6 (45.5-73.1) % Lymph % (Auto) 13.8 L (18.3-44.2) % Storey % (Auto) 19.8 H (2.6-8.5) % Eos % (Auto) 3.2 (0-4.4) % Baso % (Auto) 0.4 (0.2-1.2) % Lymph # (Auto) 0.34 L (0.9-3.2) K/mm3 Storey # (Auto) 0.5 (0.1-0.6) K/mm3 Eos # (Auto) 0.1 (0-0.3) K/mm3 Baso # (Auto) 0.0 (0.0-0.1) K/mm3 Abs Immat Gran (auto) 0.03 (0.00-0.031) K/mm3 Absolute Neuts (auto) 1.5 (1.3-6.7) K/mm3 Absolute Nucleated RBC 0.000 (0.0-0.012) K/mm3 Nucleated RBC % 0.0 (0.0-0.2) % PT 12.8 (11.1-14.7) Seconds INR 0.9 APTT 21.6 L (22.3-36.8) Seconds Sodium 137 (137-145) mmol/L Potassium 4.1 (3.4-5.0) mmol/L Chloride 100 (98-107) mmol/L Carbon Dioxide 28 (22-30) mmol/L Anion Gap 9 (4-12) mmol/L BUN 38 H (7-17) mg/dL Creatinine 0.60 L (0.7-1.0) mg/dL Estim Creat Clear Calc 48 ml/min Estimated GFR > 60 (59 - ) Glucose 102 (65-110) mg/dL Calcium 9.3 (8.4-10.2) mg/dL Magnesium 2.0 (1.6-2.3) mg/dL Total Bilirubin 1.0 (0.2-1.3) mg/dL AST 32 (14-36) U/L ALT 35 (6-35) U/L Alkaline Phosphatase 60 (38-126) U/L Troponin I 0.013 (0.000-0.034) ng/mL NT-Pro-B Natriuret Pep 650 H (19.9-100) pg/mL Total Protein 7.0 (6.3-8.2) g/dL Albumin 3.9 (3.5-5.1) g/dL Influenza A (RT-PCR) Positive A (Negative) Influenza B (RT-PCR) Negative (Negative) RSV (RT-PCR) Negative (Negative) SARS-CoV-2 RNA (RT-PCR) Negative (Negative) <Juan Carlos Roberts MD - Last Filed: 08/07/24 21:22> Imaging Data Attestation: I personally reviewed and interpreted this imaging study as follows: < Juan Carlos Roberts MD - Last Filed: 08/07/24 21:22> My impression: Impressions Chest X-Ray 08/07/24 17:38 IMPRESSION: No focal infiltrate or effusion. Chest CTA 08/07/24 19:55 IMPRESSION: No pulmonary embolus. No thoracic aortic dissection. Acute/subacute fracture of the T7 vertebral body for which clinical correlation is needed regarding point tenderness. This is an interval change since 07/23/2024 <Juan Carlos Roberts MD - Last Filed: 08/07/24 21:22> Discharge Plan Discharge Clinical Impression: Shortness of breath, COPD exacerbation, Pain in rib, Constipation <Mary Macedo PA-C - Last Filed: 08/07/24 16:41> Patient Disposition: Home, Self-Care <RADHA Shane Last Filed: 08/07/24 16:41> Condition: Stable <Mary Macedo PA-C - Last Filed: 08/07/24 16:41> Instructions: Antibiotic Form, Constipation (DC), Influenza (DC), Emphysema (DC), COPD (Chronic Obstructive Pulmonary Disease) (DC) <Mary Macedo PA-C - Last Filed: 08/07/24 16:41> Additional Instructions: We will send you home with a combination of therapies to try including Atrovent and ipratropium bromide fever nebulizer which seem to have helped to significantly today. We have also given the MiraLax free mild constipation in addition to additional steroids for COPD exacerbation. Please follow-up with regular doctor on a short-term basis to have repeat Evaluation. If you have any worsening symptoms or any new concerns, back to the ER for evaluation. continue taking ibuprofen in addition to the Tylenol for your aches and pains, myalgias or likely secondary to the influenza. <Mary Macedo PA-C - Last Filed: 08/07/24 16:41> Patient Language: French <Mary Macedo PA-C - Last Filed: 08/07/24 16:41> Prescriptions: New ibuprofen 600 mg tablet 600 mg PO TID PRN (Reason: fever or pain) Qty: 20 0RF albuterol sulfate 90 mcg/actuation HFA aerosol inhaler 2 puff inhalation QID PRN (Reason: shortness of breath or wheezing) Qty: 8.5 0RF prednisone 50 mg tablet 50 mg PO DAILY 5 Days Qty: 5 0RF Atrovent HFA 17 mcg/actuation HFA aerosol inhaler 2 puff inhalation Q8H Qty: 12.9 0RF ipratropium bromide 0.02 % solution 2.5 ml inhalation Q6H PRN (Reason: shortness of breath or wheezing) Qty: 75 0RF polyethylene glycol 3350 [Miralax] 17 gram/dose powder 17 g PO BID Qty: 119 0RF No Action loperamide 2 mg capsule 2 mg PO PRN PRN (Reason: Diarrhea) acyclovir 400 mg tablet 400 mg PO Q12H sulfamethoxazole-trimethoprim 800-160 mg tablet 1 tablet PO 3XW Patient Comments: Take on Saturday, Saturday, Saturday ondansetron 8 mg tablet,disintegrating 8 mg PO PRN PRN (Reason: Nausea) lidocaine-prilocaine 2.5-2.5 % cream 1 applic topical ONCE PRN (Reason: port access) megestrol 400 mg/10 mL (40 mg/mL) suspension 400 mg PO DAILY Trelegy Ellipta 200-62.5-25 mcg blister with device 1 inh inhalation Q24H Qty: 60 5RF prednisone 20 mg tablet 40 mg PO DAILY 5 Days Qty: 10 0RF albuterol sulfate [Ventolin HFA] 90 mcg/actuation HFA aerosol inhaler 2 puff inhalation Q4H PRN (Reason: shortness of breath or wheezing) Qty: 8.5 0RF oseltamivir [Tamiflu] 75 mg capsule 75 mg PO BID Qty: 10 0RF losartan 25 mg tablet 25 mg PO QAM Qty: 90 3RF albuterol sulfate 2.5 mg /3 mL (0.083 %) solution for nebulization 2.5 mg inhalation Q4-6H PRN (Reason: shortness of breath or wheezing) Qty: 180 1RF <Mary Macedo PA-C - Last Filed: 08/07/24 16:41> Follow-up/Referrals: Thaddeus Esposito MD [Primary Care Provider] - <Mary Macedo PA-C - Last Filed: 08/07/24 16:41> Time of Disposition: 21:14 <aMry Macedo PA-C - Last Filed: 08/07/24 16:41> 21:14 <Juan Carlos Roberts MD - Last Filed: 08/07/24 21:22>
--- NOTE | 2024-08-07 16:38 | ECG_ITS ---
Test Date: 2024-08-07 17:00:40 Measurements Intervals [place] Rate: 78 P: 50 UT: 120 QRS: 70 QRSD: 83 T: 64 QT: 355 QTc: 406 Interpretive Statements SINUS RHYTHM WITH OCCASIONAL SUPRAVENTRICULAR PREMATURE COMPLEXES LEFT VENTRICULAR HYPERTROPHY CANNOT R/O SEPTAL INFARCT, AGE INDETERMINATE PEAKED T WAVES- CONSIDER HYPERKALEMIA BASELINE ARTIFACT- I, II, III, AVR, AVL, AVF ABNORMAL ECG Compared to ECG 03/16/2024 15:18:56 HEART RATE HAS INCREASED PEAKED T WAVES NOW PRESENT Electronically Signed On 08-07-2024 19:01:17 [employer]UM STRAIGHTENER by Kai Wood D.O.
[2024-08-07 17:14] LABS: Basophils Percent Auto 0.4 % (0.2-1.2); Eosinophils Absolute Auto 0.1 K/mm3 (0-0.3); Eosinophils Percent Auto 3.2 % (0-4.4); Hematocrit 39.4 % (37.0-47.0); Hemoglobin 13.5 g/dL (12.0-15.0); Immature Granulocyte Absolute 0.03 K/mm3 (0.00-0.031); Immature Granulocyte Percent A 1.2 % (0-0.5); Lymphocytes Absolute Auto 0.34 K/mm3 (0.9-3.2); Lymphocytes Percent Auto 13.8 % (18.3-44.2); Mean Corpuscular HGB Conc 34.3 g/dl (32-36); Mean Corpuscular Volume 102.1 fl (80-100); Mean Platelet Volume 9.5 fl (7.4-10.4); Monocytes Absolute Auto 0.5 K/mm3 (0.1-0.6); Monocytes Percent Auto 19.8 % (2.6-8.5); Neutrophils Absolute Auto 1.5 K/mm3 (1.3-6.7); Neutrophils Percent Auto 61.6 % (45.5-73.1); Platelet Count Result 190 k/mm3 (150-375); Red Blood Count 3.86 M/mm3 (4.2-5.4); Red Cell Distribution Width 13.4 % (11.5-14.5); White Blood Count 2.5 K/mm3 (4.5-10.0)
[2024-08-07 17:31] LABS: INR 0.9; Prothrombin Time 12.8 Seconds (11.1-14.7)
[2024-08-07 17:32] LABS: Partial Thromboplastin Time 21.6 Seconds (22.3-36.8)
[2024-08-07 17:35] LABS: Alanine Aminotransferase 35 U/L (6-35); Albumin Level 3.9 g/dL (3.5-5.1); Alkaline Phosphatase 60 U/L (38-126); Anion Gap 9 mmol/L (4-12); Aspartate Amino Transferase 32 U/L (14-36); Blood Urea Nitrogen 38 mg/dL (7-17); Calcium 9.3 mg/dL (8.4-10.2); Carbon Dioxide 28 mmol/L (22-30); Chloride 100 mmol/L (98-107); Estimated CRCL calculation 48 ml/min; Estimated Glomerular Filt Rate > 60; Glucose 102 mg/dL (65-110); Potassium 4.1 mmol/L (3.4-5.0); Sodium 137 mmol/L (137-145)
[2024-08-07 17:46] LABS: NT Pro B Type Natriuretic Pept 650 pg/mL (19.9-100); Troponin I 0.013 ng/mL (0.000-0.034)
[2024-08-07 17:51] LABS: Influenza A QL RT-PCR Positive (Negative); Influenza B QL RT-PCR Negative (Negative); RSV RNA, RT-PCR Negative (Negative); SARS-CoV-2 RNA PCR Negative (Negative)
[2024-08-07] MEDS: methylPREDNISolone SOD SUCC 125 MG VIAL IV PUSH (17:55)
--- OUTSIDE RECORDS SUMMARY | 2024-08-07 18:37 | XMS_ITS | CONTINUITY OF CARE DOCUMENT ---
Author Name gurdeep mackenzie Address Unknown Organization [facility] Address [address] [place] [address] Phone [phone] Care Team Providers Care Resourcing Consultant Name Role Phone VALE JEROME MD Unavailable [phone] VALE JEROME MD Unavailable [phone] INSURANCE PROVIDERS Payer name Policy type / Coverage type [employer] party ID [id number]
--- OUTSIDE RECORDS SUMMARY | 2024-08-07 18:37 | XMS_ITS | Clinical Summary ---
Author Organization [facility] Sonu andrade Ajay Address [address] [place] [address] Care Team Providers Care Tool Honing Machine Set Up Operator Name Role Phone Gareth Sumner DO Primary Care Provider [phone] Allergies Active Allergy Reactions Criticality Noted Date [...] Department Care Team Description 08/04/2024 8:30 AM TIMBER APPRAISER Office Visit [facility] Oncology and Hematology [facility] [address] [place] [address] Benedicto Israel MD CLL (chronic lymphocytic leukemia) ([facility]) (Primary Dx) 08/03/2024 Orders Only [facility] Oncology and Hematology [facility] Jose Garcia [address] [place] [address] Benedicto Israel MD CLL (chronic lymphocytic leukemia) ([facility]) 07/26/2024 Refill [facility] Oncology and Hematology [facility] [place] [address] [place] [address] Benedicto Israel MD 07/23/2024 External Device Data STL ABSTRACTION Provider, Abstract 07/23/2024 Telephone [facility] Oncology and Hematology [facility] [address]erto Garcia [address] [place] [address] Benedicto Israel MD equipment request 07/20/2024 Orders Only [facility] Oncology and Hematology [facility] [address] [place] [address] Benedicto Israel MD CLL (chronic lymphocytic leukemia) ([facility]) 07/09/2024 Refill [facility] Oncology and Hematology [facility] [place] Jose Garcia [address] [place] [address] Benedicto Israel MD 07/08/2024 Orders Only [facility] Oncology and Hematology [facility] [address] Garcia [address] [place] [address] Benedicto Israel MD 07/07/2024 Refill [facility] Oncology and Hematology [facility] Jose Garcia [address] [place] [address] Benedicto Israel MD 07/06/2024 Orders Only [facility] Oncology and Hematology - [place] [address] [place] [phone] Benedicto Isreal MD CLL (chronic lymphocytic leukemia) ([facility]) 07/03/2024 Orders Only [facility] Oncology and Hematology - [address] [place] [phone] Benedicto Israel MD 06/29/2024 9:00 AM TIMBER APPRAISER Office Visit [facility] Oncology and Hematology - [place] [place] [phone] Jhonatan Longo MD CLL (chronic lymphocytic leukemia) ([facility]) (Primary Dx) 06/22/2024 Orders Only [facility] Oncology and Hematology - [place] [address] [place] [phone] Benedicto Israel MD CLL (chronic lymphocytic leukemia) ([facility]) 06/15/2024 Refill [facility] Oncology and Hematology - [place] [address] [place] [phone] Benedicto Israel MD 06/08/2024 Orders Only [facility] Oncology and Hematology - [place] [address] [place] [address] Benedicto Israel MD CLL (chronic lymphocytic leukemia) ([facility]) 06/03/2024 Telephone [facility] Oncology and Hematology - [place] [address] [place] [address] Benedicto Israel MD Insomnia 06/02/2024 External Device Data STL ABSTRACTION Provider, Abstract 06/02/2024 Orders Only [facility] Oncology and Hematology - [place] Jose [address] [place] [address] Benedicto Israel MD 06/01/2024 8:45 AM TIMBER APPRAISER Office Visit [facility] Oncology and Hematology - [place] Jose [address] [place] [address] Benedicto Israel MD CLL (chronic lymphocytic leukemia) ([facility]/H[facility]) (Primary Dx) 05/25/2024 Orders Only [facility] Oncology and Hematology [facility] [place] [address] [place] [address] Benedicto Israel MD CLL (chronic lymphocytic leukemia) ([facility]/H[facility]) 05/11/2024 Orders Only [facility] Oncology and Hematology [facility] [place] [address] [place] [address] Benedicto Israel MD CLL (chronic lymphocytic leukemia) ([facility]/HCC) from Last 3 Months Family History Medical [...] Comments Blood Pressure 161/86 08/04/2024 11:48 AM TIMBER APPRAISER Pulse 109 08/04/2024 11:48 AM TIMBER APPRAISER Temperature 36.4 C (97.5 F) 08/04/2024 11:48 AM TIMBER APPRAISER Respiratory Rate 15 06/29/2024 8:47 AM TIMBER APPRAISER Oxygen Saturation 94% 08/04/2024 11:48 AM TIMBER APPRAISER Inhaled Oxygen Concentration - - Weight 44.1 kg (97 lb 3.2 oz) 08/04/2024 11:48 A M TIMBER APPRAISER Height 152.4 cm (5') 03/30/2024 10:34 AM CDT Body Mass Index 18.98 03/30/2024 10:34 AM CDT Plan of Treatment Upcoming Encounters Date Type Department Care Team (Late st Contact Info) Description 09/01/2024 8:30 AM TIMBER APPRAISER Office Visit [facility] Oncology and Hematology - [place] [address] [facility] [address] [place] [address] Benedicto Israel MD [address] [facility] [address] [place] [address] Health Maintenance Due Date Last [...] 2015 INFLUENZA VACCINE (#1) 2024 [place] Prev entative Visit/Annual Wellness Visit 07/01/2024 Procedures Procedure Name Priority Date/Time Associated Diagnosis Comments COMPREHENSIVE METABOLIC PANEL Routine 06/29/2024 2:05 PM TIMBER APPRAISER BASIC METABOLIC PANEL Routine 06/29/2024 1:56 PM TIMBER APPRAISER BASIC METABOLIC PANEL Routine 06/01/2024 11:06 AM TIMBER APPRAISER CBC WITH DIFFERENTIAL Routine 06/01/2024 10:57 AM TIMBER APPRAISER COMPREHENSIVE METABOLIC PANEL Routine 06/01/2024 10:53 AM TIMBER APPRAISER from Last 3 Months Results * COMPREHENSIVE METABOLIC PANEL (06/29/2024 2:05 PM TIMBER APPRAISER) Only the most recent of2 resultswithin the time period is included. Blood us Benedicto Israel MD CHEMISTRY ORDERABLES Final Resu lt * BASIC METABOLIC PANEL (06/29/2024 1:56 PM TIMBER APPRAISER) Only the most recent of2 resultswithin the time period is included. Blood us Benedicto Israel MD CHEMISTRY ORDERABLES Final Resu lt * CBC WITH DIFFERENTIAL (06/01/2024 10:57 AM TIMBER APPRAISER) Blood Benedicto Israel MD HEMATOLOGY ORDERABLES Final Res ult from Last 3 Months Insurance Care Teams Tool Honing Machine Set Up Operator Relationship Specialty Start Date End Date Gareth Sumner DO [address] [place] [address] PCP - General Family Practice 03/25/24
--- OUTSIDE RECORDS SUMMARY | 2024-08-07 18:37 | XMS_ITS | Encounter Summary ---
Author Organization [facility] [employer] Address [address] [place] [address] Care Team Providers Care Evaluator Transfer Students Name Role Phone Gareth Sumner DO Primary Care Provider [phone] Encounter Details Date Type Department Care Team (Late Contact Info) Description 08/03/2024 Orders Only [facility] Oncology and Hematology [facility] [address] [place] [address] Benedicto Israel MD [address] [place], [place] [address] by [employer] [address] [place] [address] CLL (chronic lymphocytic leukemia) ([facility]/HCC) Social History Tobacco Use Types Packs/Day Years [...] st Contact Info) Description 09/01/2024 8:30 AM LOAN ADMINISTRATOR Office Visit [facility] Oncology and Hematology [facility] [address] [place] [address] Benedicto Israel MD [address] [employer] [address] [place] [address] documented as of this encounter Visit Diagnoses Diagnosis CLL (chronic lymphocytic leukemia) ([facility]/HCC) Chronic lymphoid leukemia, without mention of having achieved remission documented in this encounter Care Teams Evaluator Transfer Students Relationship Specialty Start Date End Date Gareth Sumner DO [address] [place] [address] PCP - General Family Practice 03/25/24 documented as of this encounter
[2024-08-07] MEDS: FAMOTIDINE 20 MG/2 ML VIAL IV PUSH (18:45)
[2024-08-07] MEDS: KETOROLAC 15 MG/ML VIAL (*BKC) IV PUSH (18:45)
[2024-08-07] MEDS: IPRATROPIUM BR 0.02% INH SOLN 0.5 MG/2.5 ML VIAL 1 MG INHALATION (19:24)
[2024-08-07] MEDS: ALBUTEROL SULFATE NEB 2.5 MG/3 ML INH 10 MG INHALATION (19:24)
== END 2024-08-07 22:00 | disposition home or self-care (01) ==
PROVIDERS: Physician Assistant; Emergency Provider Student in an Organized Health Care Education/Training Program; PCP Family Medicine
DX: J44.1 Chronic obstructive pulmonary disease with (acute) exacerbation (principal); K59.00 Constipation, unspecified; R07.81 Pleurodynia; C91.10 Chronic lymphocytic leukemia of B-cell type not having achieved remission; I10 Essential (primary) hypertension; I25.10 Atherosclerotic heart disease of native coronary artery without angina pectoris; J44.9 Chronic obstructive pulmonary disease, unspecified; Z87.891 Personal history of nicotine dependence; Z20.822 Contact with and (suspected) exposure to COVID-19
CPT/HCPCS: 36415; 71045; 71275; 80053; 83735; 83880; 84484; 85025; 85610; 85730; 87637; 93005; 94640; 96374; 96375; 99284; J1885; J2919; Q9967

== ENCOUNTER 2024-08-26 09:13 | Outpatient (CLI) | payer MEDICARE, MEDICAID, SELFPAY ==
--- NOTE | ~2024-08-26 | CT_ITS ---
CLINICAL INDICATION: Abdominal distention COMPARISON: 04/02/2024 Reference is made to a CTA of the chest dated 08/07/2024. TECHNIQUE: Multiple contiguous axial images of the abdomen and pelvis were performed following the ad ministration of with 100 mL Omnipaque-350 intravenous contrast The dose-length product (DLP) was 159.48 mGy-cm. Automated exposure control and iterative reconstruction technique were employed. FINDINGS/OBSERVATIONS: Visualized lower thorax: Interval development of left basilar consolidation with trace surrounding free fluid. Calcified granuloma within the right lower lobe. Remaining visualized portions of the bilateral lung bases are otherwise clear. The heart is of normal size, without pericardial effusion. Liver: The liver enhances homogeneously and is not enlarged measuring 13 cm in longitudinal dimension. Gallbladder and biliary system: The gallbladder is only minimally distended, and otherwise unremarkable. Pancreas: The pancreas enhances homogeneously without ductal dilatation. Spleen: The spleen enhances homogeneously and is not enlarged measuring 9 cm in longitudinal dimension. Kidneys: The bilateral kidneys enhance symmetrically without hydronephrosis or renal calculi. Adrenal glands: Unremarkable. Gastrointestinal tract: Gaseous distention of the stomach. Mural thickening of the stomach likely secondary to underdistention. Mural thickening with surrounding inflammatory change is identified within the rectosigmoid colon erica ng with multiple diverticula and, findings suggesting acute/early diverticulitis for which clinical c orrelation is needed. Appendix: The air-filled appendix is of normal caliber (axial series, images 92 through 109). Vasculature: Densely calcified atherosclerotic disease. Lymph nodes: Multiple pathologically enlarged lymph nodes are identified within the root of the mesentery. In addition, surrounding the ileocolic and right colic vessels, to the right of midline is redemonstr ation of a 2.8 x 3.8 x 3.6 mm focus of soft tissue attenuation, representing lymphadenopathy, decreas ed in size from previous examination dated 04/02/2024. These findings can be found on axial series, im ages 94 through 89. Pelvic structures: The bladder is decompressed, and otherwise unremarkable. The uterus is retroverted and retroflexed. Body wall and musculoskeletal: No significant degenerative disease within the lower thoracic or lumbosacral spine. IMPRESSION: Decrease in size of the mesenteric lymphadenopathy, seen on the March 2024 examination. Findings in the appropriate clinical scenario suggesting acute/early rectosigmoid diverticulitis for which clinical correlation is needed. No drainable fluid collection or gross perforation is present. Reviewed, dictated and finalized at location A. T TRAFFIC MANAGER IMPRESSION: Decrease in size of the mesenteric lymphadenopathy, seen on the March 2024 ex amination. Findings in the appropriate clinical scenario suggesting acute/early rectosigmo id diverticulitis for which clinical correlation is needed. No drainable fluid collection or gross perforation is present.
--- OUTSIDE RECORDS SUMMARY | 2024-08-26 09:59 | XMS_ITS | Clinical Summary ---
Author Organization [facility] Sonu andrade Ajay Address [address] [place] [address] Care Team Providers Care Dairy Farmworker Name Role Phone Gareth Sumner DO Primary Care Provider Allergies Active Allergy Reactions Criticality Noted Date Comments Meperidine Shortness of Breath/Wheezing High 024 Medications losartan (COZAAR) 25 mg tablet Take 25 mg by mouth daily. 4 Active sulfamethoxazol e-trimethoprim (BACTRIM DS) 800-160 mg tablet 1 tablet 3 times a week on Saturday and Saturday 36 Tablet 5 4 Active ondansetron (ZOFRAN ODT) 8 mg Tablet, Rapid Dissolve Dissolve 1 tablet on top of tongue then swallow with saliva every 8 hours as needed for nausea or vomiting 30 Tablet 1 4 Active lidocaine-prilo shara (EMLA) 2.5-2.5 % Cream APPLY QUARTER SIZE AMOUNT TO PORT SITE 30 MINUTES BEFORE ACCESS. 30 Gram 2 4 Active acyclovir (ZOVIRAX) 400 mg tablet Take 1 Tablet (400 mg) by mouth 2 times daily. 180 Tablet 5 5 Active megestroL (MEGACE) 400 mg/10 mL (40 mg/mL) suspension SHAKE LIQUID AND TAKE 10ML (400MG) BY MOUTH DAILY 240 mL 5 Active Active Problems No known active problems Encounters Date Type Department Care Team Description 08/19/2024 External Device Data STL ABSTRACTION Provider, Abstract 08/17/2024 Orders Only [facility] Oncology and Hematology - [place] [address] [place] [address] Benedicto Israel MD CLL (chronic lymphocytic leukemia) ([facility]) 08/04/2024 8:30 AM DEICER KIT ASSEMBLER Office Visit [facility] Oncology and Hematology - [place] [address] [place] [phone] Benedicto Israel MD CLL (chronic lymphocytic leukemia) ([facility]) (Primary Dx) 08/03/2024 Orders Only [facility] Oncology and Hematology - [place] Jose [address] [place] [phone] Benedicto Israel MD CLL (chronic lymphocytic leukemia) ([facility]) 07/26/2024 Refill [facility] Oncology and Hematology - [place] [address] Benedicto Israel MD 07/23/2024 External Device Data STL ABSTRACTION Provider, Abstract 07/23/2024 Telephone [facility] Oncology and Hematology - [place] Jose [address] [place] [phone] Benedicto Israel MD equipment request 07/20/2024 Orders Only [facility] Oncology and Hematology - [place] [address] [place] [address] Benedicto Israel MD CLL (chronic lymphocytic leukemia) ([facility]) 07/09/2024 Refill [facility] Oncology and Hematology - [place] [address] [place] [address] Benedicto Israel MD 07/08/2024 Orders Only [facility] Oncology and Hematology - [place] [address] [place] [address] Benedicto Israel MD 07/07/2024 Refill [facility] Oncology and Hematology - [place] [address] [place] [address] Benedicto Israel MD 07/06/2024 Orders Only [facility] Oncology and Hematology - [place] [address] Benedicto Israel MD CLL (chronic lymphocytic leukemia) ([facility]) 07/03/2024 Orders Only [facility] Oncology and Hematology - [place] [address] [place] [address] Benedicto Israel MD 06/29/2024 9:00 AM DEICER KIT ASSEMBLER Office Visit [facility] Oncology and Hematology [facility] [address] [place] [address] Jhonatan Longo MD CLL (chronic lymphocytic leukemia) ([facility]) (Primary Dx) 06/22/2024 Orders Only [facility] Oncology and Hematology [facility] [address] [place] [address] Benedicto Israel MD CLL (chronic lymphocytic leukemia) ([facility]) 06/15/2024 Refill [facility] Oncology and Hematology [facility] [address] [place], [place] [phone] Benedicto Israel MD 06/08/2024 Orders Only [facility] Oncology and Hematology [facility] Jose [address] [place] [phone] Benedicto Israel MD CLL (chronic lymphocytic leukemia) ([facility]) 06/03/2024 Telephone [facility] Oncology and Hematology - [place] [address] [place] [phone] Benedicto Israel MD Insomnia 06/02/2024 External Device Data STL ABSTRACTION Provider, Abstract 06/02/2024 Orders Only [facility] Oncology and Hematology [facility] Jose [address] [place] [phone] Benedicto Israel MD 06/01/2024 8:45 AM DEICER KIT ASSEMBLER Office Visit [facility] Oncology and Hematology [facility] Jose [address] [place] [phone] Benedicto Israel MD CLL (chronic lymphocytic leukemia) ([facility]/HCC) (Primary Dx) from Last 3 Months Family History Medical [...] Comments Blood Pressure 161/86 08/04/2024 11:48 AM DEICER KIT ASSEMBLER Pulse 109 08/04/2024 11:48 AM DEICER KIT ASSEMBLER Temperature 36.4 C (97.5 F) 08/04/2024 11:48 AM DEICER KIT ASSEMBLER Respiratory Rate 15 06/29/2024 8:47 AM DEICER KIT ASSEMBLER Oxygen Saturation 94% 08/04/2024 11:48 AM DEICER KIT ASSEMBLER Inhaled Oxygen Concentration - - Weight 44.1 kg (97 lb 3.2 oz) 08/04/2024 11:48 A M DEICER KIT ASSEMBLER Height 152.4 cm (5') 03/30/2024 10:34 AM CDT Body Mass Index 18.98 03/30/2024 10:34 AM CDT Plan of Treatment Upcoming Encounters Date Type Department Care Team (Late st Contact Info) Description 09/01/2024 8:30 AM DEICER KIT ASSEMBLER Office Visit [facility] Oncology and Hematology - [place] [address] [facility] [address] [place] [address] Benedicto Israel MD [address] [facility] [address] [place] [address] Health Maintenance Due Date Last [...] OSTEOPOROSIS SCREENING 2015 INFLUENZA VACCINE (#1) 2024 Procedures Procedure Name Priority Date/Time Associated Diagnosis Comments COMPREHENSIVE METABOLIC PANEL Routine 06/29/2024 2:05 PM DEICER KIT ASSEMBLER BASIC METABOLIC PANEL Routine 06/29/2024 1:56 PM DEICER KIT ASSEMBLER BASIC METABOLIC PANEL Routine 06/01/2024 11:06 AM DEICER KIT ASSEMBLER CBC WITH DIFFERENTIAL Routine 06/01/2024 10:57 AM DEICER KIT ASSEMBLER COMPREHENSIVE METABOLIC PANEL Routine 06/01/2024 10:53 AM DEICER KIT ASSEMBLER from Last 3 Months Results * COMPREHENSIVE METABOLIC PANEL (06/29/2024 2:05 PM DEICER KIT ASSEMBLER) Only the most recent of2 resultswithin the time period is included. Blood us Benedicto Israel MD CHEMISTRY ORDERABLES Final Resu lt * BASIC METABOLIC PANEL (06/29/2024 1:56 PM DEICER KIT ASSEMBLER) Only the most recent of2 resultswithin the time period is included. Blood us Benedicto Israel MD CHEMISTRY ORDERABLES Final Resu lt * CBC WITH DIFFERENTIAL (06/01/2024 10:57 AM DEICER KIT ASSEMBLER) Blood us Benedicto Israel MD HEMATOLOGY ORDERABLES Final Res ult from Last 3 Months [id number] [id number] Care Teams Dairy Farmworker Relationship Specialty Start Date End Date Gareth Sumner DO [address] [place] [phone] PCP - General Family Practice 03/25/24
--- OUTSIDE RECORDS SUMMARY | 2024-08-26 09:59 | XMS_ITS | CONTINUITY OF CARE DOCUMENT ---
Author Name gurdeep mackenzie Address Unknown Organization [facility] Address [address] [facility] [address] [place] [address] Phone [phone] Care Team Providers Care Business Teacher Name Role Phone VALE JEROME MD Unavailable [phone] VALE JEROME MD Unavailable [phone] INSURANCE PROVIDERS Payer name Policy type / Coverage type [employer] red republican ID [id number] PAY
== END 2024-08-26 09:14 | disposition home or self-care (01) ==
PROVIDERS: PCP Family Medicine; Visit Provider Nurse Practitioner Family
DX: R93.5 Abnormal findings on diagnostic imaging of other abdominal regions, including retroperitoneum (principal); C91.10 Chronic lymphocytic leukemia of B-cell type not having achieved remission
CPT/HCPCS: 74177; Q9967

== ENCOUNTER 2024-09-02 10:38 | Outpatient (CLI) | payer MEDICARE, MEDICAID, SELFPAY ==
--- OUTSIDE RECORDS SUMMARY | 2024-09-02 12:37 | XMS_ITS | CONTINUITY OF CARE DOCUMENT ---
Author Name gurdeep mackenzie Address Unknown Organization [facility] Address [address] [facility] [address] [place] [address] Phone [phone] Care Team Providers Care Us Marketing Director Name Role Phone VALE JEROME MD Unavailable [phone] VALE JEROME MD Unavailable [phone] INSURANCE PROVIDERS Payer name Policy type / Coverage type Jadwin red democrat ID [id number] PAY
--- OUTSIDE RECORDS SUMMARY | 2024-09-02 12:37 | XMS_ITS | Encounter Summary ---
Author Organization [facility] [employer] Address [address] [place] [address] Care Team Providers Care Salvager Helper Name Role Phone Gareth Sumner DO Primary Care Provider [phone] Encounter Details Date Type Department Care Team (Late Contact Info) Description 08/31/2024 Orders Only [facility] Oncology and Hematology [facility] [address] [place] [address] Benedicto Israel MD [facility] [employer] [address] [place] [phone] CLL (chronic lymphocytic leukemia) ([facility]/HCC) Social History Tobacco Use Types Packs/Day Years [...] Encounters Date Type Department Care Team (Late Contact Info) Description 09/29/2024 9:00 AM CDT Office Visit [facility] Oncology and Hematology [address] [place] [address] Benedicto Israel MD [address] [employer] [address] [place] [address] documented as of this encounter Visit Diagnoses Diagnosis CLL (chronic lymphocytic leukemia) ([facility]/HCC) Chronic lymphoid leukemia, without mention of having achieved remission documented in this encounter Care Teams Salvager Helper Relationship Specialty Start Date End Date Gareth Sumner DO [address] [place] [address] PCP - General Family Practice 03/25/24 documented as of this encounter
--- OUTSIDE RECORDS SUMMARY | 2024-09-02 12:37 | XMS_ITS | Encounter Summary ---
Author Organization [facility] [employer] [facility] Address [address] [place] [address] Care Team Providers Care President Name Role Phone Gareth Sumner DO Primary Care Provider [phone] Reason for Visit * Reason Comments Chemotherapy Follow Up Encounter Details Date Type Department Care Team (Late st Contact Info) Description 09/02/2024 9:00 AM SOUND ENGINEER AUDIO CONTROL Office Visit [facility] Oncology and Hematology - [address] [facility] [address] [place] [address] Benedicto Israel MD [address] [facility] [address] [place] [address] CLL (chronic lymphocytic leukemia) (CMS/HCC) (Primary Dx) Social History Tobacco Use Types Packs/Day Years Used Date Smoking Tobacco: Former Cigarettes 2 30 Q uit: 03/30/2013 Smokeless Tobacco: Never Comments Unknown Sex and Gender Information Value Date Recorded Sex Assigned at Not on file Legal Sex Female 7:31 AM CDT Gender Identity Not on file Sexual Orientation Not on file documented as of this encounter Last Filed Vital Signs Vital Sign Reading Time Taken Comments Blood Pressure 137/73 09/02/2024 8:45 AM SOUND ENGINEER AUDIO CONTROL Pulse 99 09/02/2024 8:43 AM SOUND ENGINEER AUDIO CONTROL Temperature 36.3 C (97.3 F) 09/02/2024 8:43 AM SOUND ENGINEER AUDIO CONTROL Respiratory Rate 16 09/02/2024 8:43 AM SOUND ENGINEER AUDIO CONTROL Oxygen Saturation 90% 09/02/2024 8:43 AM SOUND ENGINEER AUDIO CONTROL Inhaled Oxygen Concentration - - Weight 47.2 kg (104 lb) 09/02/2024 8:43 AM SOUND ENGINEER AUDIO CONTROL Height - - Body Mass Index 20.31 03/30/2024 10:34 AM CDT documented in this encounter Progress Notes * Benedicto Israel MD - 09/02/2024 8:58 AM CST HEMATOLOGY / ONCOLOGY PROGRESS NOTE Patient Identification: Name: Karen Hung Age: 74 y.o. Sex: female : 1950 DIAGNOSIS Chronic lymphocytic leukemia/SLL stage IV disease CURRENT TREATMENT Chemotherapy with Bendamustine Rituxan cycle 1 started May 05, 2024. TREATMENT HISTORY SUBJECTIVE Patient came into the office for follow-up visit and continuation of chemotherapy. She has been tolerating chemotherapy well. Denies any nausea vomiting. She has gained 7 pound weight. No other new complaint. Review of system Constitutional: Patient did not mention fevers, sweats, 7 pound weight gain without any tiredness and fatigue HEENT: Patient did not mention sinus congestion, hearing or vision problems Respiratory: Patient did not mention cough, dyspnea, wheeze Cardiovascular: Patient did not mention chest pain, exertional chest pressure/discomfort, nausea, syncope, shortness of breath GI: Patient did not mention constipation, diarrhea, dsyphagia, reflux symptoms, vomiting, melena : Patient did not mention dysuria, frequency, incontinence, urgency Integumentary system: no lymphadenopathy, sweats, flushing Musculoskeletal: Patient not mention: myalgia, arthralgia Neurological: Patient did not mention blurry or disturbed vision, numbness/weakness, dizziness Skin: No lumps, bumps or rashes. 12 point review of system was reviewed Objective: Vital signs in last 24 hours: As per nursing note Exam: General appearance: alert, cooperative, no distress, appears stated age Head: normocephalic, without obvious abnormality, atraumatic Eyes: conjunctivae/corneas clear, EOM's intact Ears: normal external ear canals AU Nose: Nares normal. Septum midline. Mucosa normal. No drainage or sinus tenderness Throat: Lips, mucosa, and tongue normal. Teeth and gums normal Neck: supple, symmetrical, trachea midline. Lungs: clear to auscultation bilaterally Heart: regular rate and rhythm, S1, S2 normal, no murmur, click, rub or gallop Abdomen: soft, non-tender. Bowel sounds normal. No masses, No organomegaly Extremities: extremities normal, atraumatic, no cyanosis or edema Skin: Skin color, texture, turgor normal. No rashes or lesions Lymph nodes: Stable neck lymphadenopathy Neuro: No obvious focal deficit Exam as above PATH LABS Labs from June 01 showed creatinine 0.8 WBC 15.8 hemoglobin 10.1 platelet 119,000 neutrophils 11% lymphocyte 68% Labs from August 04 showed creatinine 0.7 WBC 4.1 hemoglobin 13.3 platelet 240,000 Labs from September 01 showed WBC 3.1 hemoglobin 10.9 platelet 261,000 Assessment: Plan: There are no active problems to display for this patient. 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 Patient started chemotherapy with Bendamustine and Rituxan cycle 1 on May 05, 2024. Labs noted and stable. She has been tolerating chemotherapy well and will proceed with cycle #5 of chemotherapy with Bendamustine and Rituxan today. Follow-up in 4 weeks. Anorexia and weight loss. Patient will continue Megace. She has gained 7 pound weight. Anemia. Secondary to CLL and possibly from chemo. Hemoglobin stable. Follow-up in 4 weeks 09/02/2024 Benedicto Israel MD D ENGINEER AUDIO CONTROL documented in this encounter Plan of Treatment Upcoming Encounters Date Type Department Care Team (Late st Contact Info) Description 09/29/2024 9:00 AM CDT Office Visit [facility] Oncology and Hematology [facility] [address] [facility] [address] [place] [address] Beendicto Israel MD [address] [facility] [address] [place] [address] Scheduled Orders Name Type Priority Associated Diagnoses Orde r Schedule CBC WITH DIFFERENTIAL Lab Stat CLL (chronic lymphocytic leukemia) ([facility]/HCC) Expected: 09/30/2024, Expires: 09/02/2025 BASIC METABOLIC PANEL Lab Stat CLL (chronic lymphocytic leukemia) ([facility]/HCC) Expected: 09/30/2024, Expires: 09/02/2025 documented as of this encounter Visit Diagnoses Diagnosis CLL (chronic lymphocytic leukemia) ([facility])- Primary Chronic lymphoid leukemia, without mention of having achieved remission documented in this encounter Care Teams President Relationship Specialty Start Date End Date Gareth Sumner DO [address] [place] [address] PCP - General Family Practice 03/25/24 documented as of this encounter
--- OUTSIDE RECORDS SUMMARY | 2024-09-02 12:38 | XMS_ITS | Clinical Summary ---
Author Organization [facility] Address [address] [facility] [place] [address] Care Team Providers Care Insurance Biller Name Role Phone Gareth Sumner DO Primary [...] Encounters Date Type Department Care Team Description 09/02/2024 9:00 AM CONTINUOUS LINTER DRIER OPERATOR Office Visit [facility] Oncology and Hematology - [address] [facility] [address] [place] [address] Benedicto Israel MD CLL (chronic lymphocytic leukemia) ([facility]) (Primary Dx) 09/01/2024 Orders Only [facility] Oncology and Hematology - Yahir [address] [place] [address] Benedicto Israel MD 08/31/2024 Orders Only [facility] Oncology and Hematology - [address]ah[address] [place] [address] Benedicto Israel MD CLL (chronic lymphocytic leukemia) ([facility]) 08/19/2024 External Device Data STL ABSTRACTION Provider, Abstract 08/17/2024 Orders Only [facility] Oncology and Hematology - [address] [place] [address] Benedicto Israel MD CLL (chronic lymphocytic leukemia) ([facility]) 08/04/2024 8:30 AM CONTINUOUS LINTER DRIER OPERATOR Office Visit [facility] Oncology and Hematology - Yahir [address] [place] [address] Benedicto Israel MD CLL (chronic lymphocytic leukemia) ([facility]) (Primary Dx) 08/03/2024 Orders Only [facility] Oncology and Hematology - Yah[address] [place] [address] Benedicto Israel MD CLL (chronic lymphocytic leukemia) ([facility]) 07/26/2024 Refill [facility] Oncology and Hematology - [address] [place] [address] Benedicto Israel MD 07/23/2024 External Device Data STL ABSTRACTION Provider, Abstract 07/23/2024 Telephone [facility] Oncology and Hematology - [address] [place] [address] Benedicto Israel MD equipment request 07/20/2024 Orders Only [facility] Oncology and Hematology - [address] [place] [address] Benedicto Israel MD CLL (chronic lymphocytic leukemia) ([facility]) 07/09/2024 Refill [facility] Oncology and Hematology - Yahir [address] [place] [address] Benedicto Israel MD 07/08/2024 Orders Only [facility] Oncology and Hematology - [address] [place] [phone] Benedicto Israel MD 07/07/2024 Refill [facility] Oncology and Hematology - [address] [place] [address] Benedicto Israel MD 07/06/2024 Orders Only [facility] Oncology and Hematology - [address] [place] [phone] Benedicto Israel MD CLL (chronic lymphocytic leukemia) ([facility]) 07/03/2024 Orders Only [facility] Oncology and Hematology - [address] [place] [phone] Benedicto Israel MD 06/29/2024 9:00 AM CONTINUOUS LINTER DRIER OPERATOR Office Visit [facility] Oncology and Hematology - [address] [place] [address] Jhonatan Longo MD CLL (chronic lymphocytic leukemia) ([facility]) (Primary Dx) 06/22/2024 Orders Only [facility] Oncology and Hematology - Yahir [address] [place] [address] Benedicto Israel MD CLL (chronic lymphocytic leukemia) ([facility]) 06/15/2024 Refill [facility] Oncology and Hematology - Y[address]ir [address] [place] [address] Benedicto Israel MD 06/08/2024 Orders Only [facility] Oncology and Hematology - Yahir [address] [place] [address] Benedicto Israel MD CLL (chronic lymphocytic leukemia) (CMS/HCC) from Last 3 Months Family History Medical [...] Comments Blood Pressure 137/73 09/02/2024 8:45 AM CONTINUOUS LINTER DRIER OPERATOR Pulse 99 09/02/2024 8:43 AM CONTINUOUS LINTER DRIER OPERATOR Temperature 36.3 C (97.3 F) 09/02/2024 8:43 AM CONTINUOUS LINTER DRIER OPERATOR Respiratory Rate 16 09/02/2024 8:43 AM CONTINUOUS LINTER DRIER OPERATOR Oxygen Saturation 90% 09/02/2024 8:43 AM CONTINUOUS LINTER DRIER OPERATOR Inhaled Oxygen Concentration - - Weight 47.2 kg (104 lb) 09/02/2024 8:43 AM CONTINUOUS LINTER DRIER OPERATOR Height 152.4 cm (5') 03/30/2024 10:34 AM CDT Body Mass Index 20.31 03/30/2024 10:34 AM CDT Plan of Treatment Upcoming Encounters Date Type Department Care Team (Late st Contact Info) Description 09/29/2024 9:00 AM CDT Office Visit [facility] Oncology and Hematology - Yahir [address] [facility] [address] [place] [address] Benedicto Israel MD [address] [facility] [address] [place] [address] Health Maintenance Due Date Last Done Comments DTAP/TDAP/TD VACCINES (1 - Tdap) 1969 PNEUMOCOCCAL VACCINE 50+ YEARS (1 of 2 - PCV) 08/16/18 70 ZOSTER VACCINE (1 of 2) 1969 BREAST CANCER SCREENING 1990 COLORECTAL SCREENING 1995 Colorectal Cancer Screening 1995 FIT-DNA Q 3 years 1995 FIT/FOBT Q 1 year 1995 Flex Sig/CT Colonography Q 5 years 1995 Lung Cancer Screening 2000 RSV VACCINE (60+ or ) (1 - Risk 60-74 years 1-dose series) 2010 OSTEOPOROSIS SCREENING 2015 INFLUENZA VACCINE (#1) 2024 [place] ([place]) Prev entative Visit/Annual Wellness Visit 07/01/2024 Procedures Procedure Name Priority Date/Time Associated Diagnosis Comments BASIC METABOLIC PANEL Routine 09/01/2024 1:26 PM CONTINUOUS LINTER DRIER OPERATOR COMPREHENSIVE METABOLIC PANEL Routine 06/29/2024 2:05 PM CONTINUOUS LINTER DRIER OPERATOR BASIC METABOLIC PANEL Routine 06/29/2024 1:56 PM CONTINUOUS LINTER DRIER OPERATOR from Last 3 Months Results * BASIC METABOLIC PANEL (09/01/2024 1:26 PM CONTINUOUS LINTER DRIER OPERATOR) Only the most recent of2 resultswithin the time period is included. Blood Benedicto Israel MD CHEMISTRY ORDERABLES Final Resu lt * COMPREHENSIVE METABOLIC PANEL (06/29/2024 2:05 PM CONTINUOUS LINTER DRIER OPERATOR) Blood us Benedicto Israel MD CHEMISTRY ORDERABLES Final Resu lt from Last [address] [place] [address] [place] [id number] [place] [facility] [place] [id number] Care Teams Insurance Biller Relationship Specialty Start Date End Date Gareth Sumner DO [address] [place] [address] PCP - General Family Practice 03/25/24
--- OUTSIDE RECORDS SUMMARY | 2024-09-02 12:38 | XMS_ITS | Encounter Summary ---
Author Organization [facility] [employer] [facility] Address [address] [place] [address] Care Team Providers Care Radio Board Operator Name Role Phone Gareth Sumner DO Primary Care Provider [phone] Encounter Details Date Type Department Care Team (Late Contact Info) Description 09/01/2024 Orders Only [facility] Oncology and Hematology - Yahir [address] [place] [address] [place] [address] [place] [address] [employer] [address] [place] [address] Social History Tobacco Use Types Packs/Day Years [...] Description 09/29/2024 9:00 AM CDT Office Visit [facility] Oncology and Hematology - Yahir [address] [place] [address] Benedicto Israel MD [facility] [employer] [address] [place] [address] documented as of this encounter Procedures Procedure Name Priority Date/Time Associated Diagnosis Comments BASIC METABOLIC PANEL Routine 09/01/2024 1:26 PM SHACTOR HELPER documented in this encounter Results * BASIC METABOLIC PANEL (09/01/2024 1:26 PM SHACTOR HELPER) Blood Benedicto Israel MD CHEMISTRY ORDERABLES Final Resu lt documented in this encounter Visit Diagnoses Not on filedocumented in this encounter Care Teams Radio Board Operator Relationship Specialty Start Date End Date Gareth Sumner DO [address] [place] [phone] PCP - General Family Practice 03/25/24 documented as of this encounter
[2024-09-02 12:43] LABS: Hemoglobin A1C 4.3 % (<5.7)
== END 2024-09-02 10:39 | disposition home or self-care (01) ==
LOC: ANHLAB 10:57
PROVIDERS: PCP Family Medicine; Visit Provider Family Medicine
DX: R73.9 Hyperglycemia, unspecified (principal)
CPT/HCPCS: 36415; 83036

== ENCOUNTER 2024-10-23 09:06 | Outpatient (CLI) | payer MEDICARE, MEDICAID, SELFPAY ==
--- NOTE | ~2024-10-23 | CT_ITS ---
Clinical Indication: CLL CT Scan of the Chest, Abdomen, and Pelvis with Contrast: Technique: Contiguous sections were acquired throughout the chest, abdomen, and pelvis after intraven ous administration of 100 cc of Omnipaque 350. Dose reduction technique was used on this scan by scott camarena automated exposure control and iterative reconstruction technique. The dose-length product (DL P) was 269.82 mGy-cm. Comparison: 08/26/2024 and 08/07/2024 Findings: There is no evidence of any significant mediastinal, hilar or axillary lymphadenopathy. The mediastin al soft tissues and vascular structures appear normal. There is no evidence of pleural or pericardial effusion. There is severe emphysema with probable right apical scarring. 5 mm left upper lobe nodule present wi th amorphous surrounding groundglass opacity (axial image 36 for example). The liver, spleen, pancreas, gallbladder, adrenals and kidneys are within normal limits. There are at herosclerotic calcifications of the aorta and iliac vessels. There are multiple mildly enlarged centr al mesenteric lymph nodes present, though improved from prior exam. No bowel obstruction or bowel wall thickening. There is no evidence to suggest acute appendicitis. Urinary bladder is unremarkable. No pelvic mass seen. No ascites. Stable mild compression fracture of T12. There is severe compression fracture of T7, with progressive loss of height since prior exam. There is moderate T8 compression fracture, new from prior exam. Impression: Central mesenteric lymphadenopathy is mildly improved from prior exam. 5 mm left upper lobe nodule with surrounding groundglass opacity. This is indeterminate. Consider fol low-up exam in 3-6 months to reassess. Severe emphysema with biapical scarring. Severe T7 compression fracture with progressive loss of height since prior exam. Moderate T8 compress ion fracture, new from prior exam as well. Stable chronic mild compression fracture of T12. Reviewed, dictated and finalized at [facility]. Impression: Central mesenteric lymphadenopathy is mildly improved from prior exam. 5 mm left upper lobe nodule with surrounding groundglass opacity. This is indet erminate. Consider follow-up exam in 3-6 months to reassess. Severe emphysema with biapical scarring. Severe T7 compression fracture with progressive loss of height since prior exam . Moderate T8 compression fracture, new from prior exam as well. Stable chronic mild compression fracture of T12.
--- OUTSIDE RECORDS SUMMARY | 2024-10-23 09:17 | XMS_ITS | CONTINUITY OF CARE DOCUMENT ---
Author Name gurdeep mackenzie Address Unknown Organization [facility] Address [address] [facility] [address] [place] [address] Phone [phone] Care Team Providers Care Almond Pan Finisher Name Role Phone VALE JEROME MD Unavailable [phone] VALE JEROME MD Unavailable [phone] INSURANCE PROVIDERS Payer name Policy type / Coverage type [place] [employer] green party ID [id number] PAY
--- OUTSIDE RECORDS SUMMARY | 2024-10-23 09:17 | XMS_ITS | Clinical Summary ---
Author Organization [facility] Sonu andrade Ajay Address [address] [place] [address] Care Team Providers Care Instrumentation And Controls Technician Name Role Phone Gareth Sumner DO Primary Care Provider [phone] Allergies Active Allergy Reactions Criticality Noted Date [...] or vomiting 30 Tablet 1 4 Active acyclovir (ZOVIRAX) 400 mg tablet Take 1 Tablet (400 mg) by mouth 2 times daily. 180 Tablet 5 5 Active lidocaine-prilo shara (EMLA) 2.5-2.5 % CreamIndication s:CLL (chronic lymphocytic leukemia) ([facility]) Apply quarter size amount to port site 30 minutes before access. 90 Gram 5 Active megestroL (MEGACE) 400 mg/10 mL (40 mg/mL) suspension Take 10 mL (400 mg) by mouth daily. 240 mL 5 Active megestroL (MEGACE) 400 mg/10 mL (40 mg/mL) suspension SHAKE LIQUID AND TAKE 10ML (400MG) BY MOUTH DAILY 240 mL 5 09/30/19 25 Discontinu ed(Reorder ) Active Problems No known active problems Encounters Date Type Department Care Team Description 10/12/2024 Orders Only [facility] Oncology and Hematology - [place] [address] Benedicto Israel MD CLL (chronic lymphocytic leukemia) ([facility]) 09/29/2024 9:00 AM CDT Office Visit [facility] Oncology and Hematology - [place] [address] [place] [phone] Benedicto Israel MD CLL (chronic lymphocytic leukemia) ([facility]) (Primary Dx) 09/29/2024 Orders Only [facility] Oncology and Hematology - [place] [address] [place] [address] Benedicto Israel MD 09/28/2024 Orders Only [facility] Oncology and Hematology - [place] [address] [place] [address] Benedicto Israel MD CLL (chronic lymphocytic leukemia) ([facility]) 09/18/2024 Refill [facility] Oncology and Hematology - [place] [address] [place] [address] Benedicto Israel MD CLL (chronic lymphocytic leukemia) ([facility]) 09/16/2024 External Device Data STL ABSTRACTION Provider, Abstract 09/14/2024 Orders Only [facility] Oncology and Hematology - [place] [address] [place] [phone] Benedicto Israel MD CLL (chronic lymphocytic leukemia) ([facility]) 09/09/2024 Refill [facility] Oncology and Hematology - [place] [address] [place] [address] Benedicto Israel MD CLL (chronic lymphocytic leukemia) ([facility]) (Primary Dx) 09/05/2024 External Device Data STL ABSTRACTION Provider, Abstract 09/05/2024 External Device Data STL ABSTRACTION Provider, Abstract 09/05/2024 Refill [facility] Oncology and Hematology - [place] [address] [place] [address] Benedicto Israel MD 09/02/2024 9:00 AM ZIGZAG APPLIQUER Office Visit [facility] Oncology and Hematology [facility] [address] [place] [phone] Benedicto Israel MD CLL (chronic lymphocytic leukemia) ([facility]) (Primary Dx) 09/02/2024 External Device Data STL ABSTRACTION Provider, Abstract 09/01/2024 Orders Only [facility] Oncology and Hematology - [place] [address] [place] [address] Benedicto Israel MD 08/31/2024 Orders Only [facility] Oncology and Hematology - [place] [address] [place] [address] Benedicto Israel MD CLL (chronic lymphocytic leukemia) ([facility]) 08/19/2024 External Device Data STL ABSTRACTION Provider, Abstract 08/17/2024 Orders Only [facility] Oncology and Hematology [place] [address] [place] [address] Benedicto Israel MD CLL (chronic lymphocytic leukemia) ([facility]) 08/04/2024 8:30 AM ZIGZAG APPLIQUER Office Visit [facility] Oncology and Hematology [facility] [address] [place] [address] Benedicto Israel MD CLL (chronic lymphocytic leukemia) ([facility]) (Primary Dx) 08/03/2024 Orders Only [facility] Oncology and Hematology - [place] [address] [place] [address] Benedicto Israel MD CLL (chronic lymphocytic leukemia) ([facility]) 07/26/2024 Refill [facility] Oncology and Hematology - [place] [address] [place] [phone] Benedicto Israel MD from Last 3 Months Family History Medical [...] Sign Reading Time Taken Comments Blood Pressure 146/80 09/29/2024 8:47 AM CDT Pulse 77 09/29/2024 8:45 AM CDT Temperature 36.1 C (96.9 F) 09/29/2024 8:45 AM CDT Respiratory Rate 15 09/29/2024 8:45 AM CDT Oxygen Saturation 97% 09/29/2024 8:45 AM CDT Inhaled Oxygen Concentration - - Weight 46.1 kg (101 lb 9.6 oz) 09/29/2024 8:45 A M CDT Height 152.4 cm (5') 03/30/2024 10:34 AM CDT Body Mass Index 19.84 03/30/2024 10:34 AM CDT Plan of Treatment Upcoming Encounters Date Type Department Care Team (Late st Contact Info) Description 11/04/2024 9:45 AM CDT Office Visit [facility] Oncology and Hematology - [place] [address] [facility] [address] [place] [address] Benedicto Israel MD [address] [facility] [address] [place] [address] Health Maintenance Due Date Last [...] 2015 INFLUENZA VACCINE (#1) 2024 [place] Prev entative Visit/Annual Wellness Visit 07/01/2024 Procedures Procedure Name Priority Date/Time Associated Diagnosis Comments COMPREHENSIVE METABOLIC PANEL Routine 09/29/2024 1:08 PM CDT BASIC METABOLIC PANEL Routine 09/29/2024 1:07 PM CDT BASIC METABOLIC PANEL Routine 09/01/2024 1:26 PM ZIGZAG APPLIQUER from Last 3 Months Results * COMPREHENSIVE METABOLIC PANEL (09/29/2024 1:08 PM CDT) Blood us Benedicto Israel MD CHEMISTRY ORDERABLES Final Resu lt * BASIC METABOLIC PANEL (09/29/2024 1:07 PM CDT) Only the most recent of2 resultswithin the time period is included. Blood us Benedicto Israel MD CHEMISTRY ORDERABLES Final Resu lt from Last [address] [place] [address] [place] [id number] [place] [id number] Care Teams Instrumentation And Controls Technician Relationship Specialty Start Date End Date Gareth Sumner DO [address] [place] [address] PCP - General Family Practice 03/25/24
== END 2024-10-23 09:07 | disposition home or self-care (01) ==
PROVIDERS: PCP Family Medicine; Visit Provider Internal Medicine Hematology & Oncology
DX: C91.10 Chronic lymphocytic leukemia of B-cell type not having achieved remission (principal); J43.9 Emphysema, unspecified; S22.060D Wedge compression fracture of T7-T8 vertebra, subsequent encounter for fracture with routine healing; X58.XXXD Exposure to other specified factors, subsequent encounter
CPT/HCPCS: 71260; 74177; Q9967

== ENCOUNTER 2025-03-23 08:03 | Outpatient (CLI) | payer MEDICARE, MEDICAID, SELFPAY ==
--- OUTSIDE RECORDS SUMMARY | 2016-10-10 03:00 | XMS_ITS | Continuity of Care Document ---
Author Organization [facility] Address [address] [address] [place] [address] Phone Care Team Providers Care Client Technical Professional Name Role Phone Finesse Baker MD Unavailable Unavailable Procedures Procedure Date OPHTHALMIC BIOMETRY Advance Directives Directive Yes / No Effective Date File Name No Information Encounters Encounter Description Practice Location Reason(s) For Visit Diagnoses Date Provider Providers Copied on Encounter [facility], [address] [place] [address] [address], [place], [place], [id number], [place] tel:[phone] [facility] 601 No Information Samuel Kilpatrick. [address] [place] [address], [facility] [address], [place], [id number]. Referring Provider: Finesse Baker, [address] [place] [address], [place], [address]. Family History Family Member Type Diagnosis Age At Onset No Information Payers Payer name Insurance type Covered constitution party ID Authoriza tion(s) Medicare Part B [facility] [id number] [facility] Insurance CI [id number] Social History Type Description Quantity Date Captured Comments Sex Female Smoking Status No Information Chief Complaint And Reason For Visit No Information Reason For Referral Reason For Referral No Information History Of Present Illness Encounter Date Complaint History Of Prese nt Illness No Information Functional Status Date Functional Assessmen t No Information Instructions Date Instruction Additional Infor mation No Information Assessments Type Assessment Date No Information Patient Care Teams Name Effective Dates (start - stop) Status Members No Information
--- NOTE | ~2025-03-23 | CT_ITS ---
EXAMINATION: CT chest abdomen pelvis w con DATE: 03/23/2025 08:38 INDICATION: Chronic lymphocytic leukemia. TECHNIQUE: Computed tomography (CT) of the chest, abdomen, and pelvis was performed with 100 mL Omnipaque 350 intravenous contrast. Automated exposure control and iterative reconstruction technique were employed. The dose-length product was 239.10 mGy-cm. COMPARISON: CT 10/23/2024, 04/02/24 FINDINGS: CHEST CT: There is moderate emphysema. Calcified pulmonary nodules and calcified hilar lymph nodes are consistent with old granulomatous disease. There is mild scarring at the apices. There is a stable 5 mm nodule in left lung upper lobe with surrounding groundglass opacity, likely benign. There are airspace opa cities with volume loss in left lower lobe, consistent with atelectasis and pneumonia. The heart size is normal. There are coronary artery calcifications. There is a small pericardial effusion. There is a left internal jugular port with tip in proximal right atrium. There is a 7 mm nodule in left thyroid lobe, likely not clinically significant. There is mild thoracic spondylosis. There are chronic burst fractures of T7, T8, and T12. There are chronic compression fractures of T2 and T3. ABDOMEN/PELVIS CT: The liver, gallbladder, spleen, pancreas, and adrenal glands are normal. There is cortical thinning of the kidneys. There is diverticulosis of the colon without evidence of diverticulitis. There are no dilated loops of bowel. The appendix is normal. There is mesenteric lymphadenopathy. For example, a m esenteric node measures 2.4 x 1.4 cm that was previously normal in size. There is no ascites. There is mild lumbar spondylosis. IMPRESSION: 1. Worsened mesenteric lymphadenopathy, consistent with chronic lymphocytic leukemia. 2. Airspace opacities with volume loss in left lung lower lobe, likely a combination of atelectasis and pneumonia. 3. Stable part-solid nodule in left lung upper lobe, probably benign. Noncontrast chest CT is recommended in 6 months. 4. Moderate emphysema. Reviewed, dictated and finalized at location E. IMPRESSION: 1. Worsened mesenteric lymphadenopathy, consistent with chronic lymphocytic lukas kemia. 2. Airspace opacities with volume loss in left lung lower lobe, likely a combin ation of atelectasis and pneumonia. 3. Stable part-solid nodule in left lung upper lobe, probably benign. Noncontra st chest CT is recommended in 6 months. 4. Moderate emphysema.
--- OUTSIDE RECORDS SUMMARY | 2025-03-23 08:22 | XMS_ITS | Clinical Summary ---
Author Organization [facility] Sonu andrade Ajay Address [address] [place] [address] Care Team Providers Care Guideman Name Role Phone Gareth Sumner DO Primary Care Provider Allergies Active Allergy Reactions Criticality Noted Date Comments Meperidine Shortness of Breath/Wheezing High 024 Medications losartan (COZAAR) 25 mg tablet Take 25 mg by mouth daily. 4 Active sulfamethoxazole -trimethoprim (BACTRIM DS) 800-160 mg tablet 1 tablet [...] by mouth daily. 240 mL 5 Active lidocaine-priloc dorinda (EMLA) 2.5-2.5 % CreamIndications :CLL (chronic lymphocytic leukemia) ([facility]) APPLY QUARTER SIZE AMOUNT TO PORT SITE 30 MINUTES BEFORE ACCESS 90 Gram 11 5 Active Active Problems No known active problems Encounters Date Type Department Care Team Description 03/16/2025 External Device Data STL ABSTRACTION Provider, Abstract 03/15/2025 Orders Only [facility] Oncology and Hematology - [place] [address] [place] [address] Benedicto Israel MD CLL (chronic lymphocytic leukemia) ([facility]) 03/01/2025 Orders Only [facility] Oncology and Hematology - [place] [address] [place] [address] Benedicto Israel MD CLL (chronic lymphocytic leukemia) ([facility]) 02/15/2025 Orders Only [facility] Oncology and Hematology - [place] [address] [place] [phone] Benedicto Israel MD CLL (chronic lymphocytic leukemia) ([facility]) 02/01/2025 Orders Only [facility] Oncology and Hematology - [place] [address] [place] [address] Benedicto Israel MD CLL (chronic lymphocytic leukemia) ([facility]) 01/18/2025 Orders Only [facility] Oncology and Hematology - [place] [address] [place] [address] Benedicto Israel MD CLL (chronic lymphocytic leukemia) ([facility]) 01/13/2025 External Device Data STL ABSTRACTION Provider, Abstract 01/13/2025 External Device Data STL ABSTRACTION Provider, Abstract 01/13/2025 External Device Data STL ABSTRACTION Provider, Abstract 01/04/2025 Orders Only [facility] Oncology and Hematology - [place] [address] [place] [address] Benedicto Israel MD CLL (chronic lymphocytic leukemia) ([facility]) 12/22/2024 External Device Data STL ABSTRACTION Provider, Abstract 12/21/2024 Orders Only [facility] Oncology and Hematology - [place] [address] [place] [address] Benedicto Israel MD CLL (chronic lymphocytic leukemia) ([facility]) from Last 3 Months Family History Medical [...] Sign Reading Time Taken Comments Blood Pressure 145/82 11/25/2024 1:39 PM CDT Pulse 71 11/25/2024 1:35 PM CDT Temperature 36 C (96.8 F) 11/25/2024 1:35 PM CDT Respiratory Rate 15 11/25/2024 1:35 PM CDT Oxygen Saturation 93% 11/25/2024 1:3 5 PM CDT Inhaled Oxygen Concentration - - Weight 51.8 kg (114 lb 3.2 oz) 11/25/2024 1:35 PM CDT Pt verbally stated that this is the correct weight Height 152.4 cm (5') 03/30/2024 10:34 AM CDT Body Mass Index 22.3 03/30/2024 10:34 AM CDT Plan of Treatment Upcoming Encounters Date Type Department Care Team (Late st Contact Info) Description 03/30/2025 1:15 PM CDT Office Visit [facility] Oncology and Hematology - [place] [address] [facility] [address] [place] [address] Benedicto Israel MD [address] [facility] [address] [place] [address] Health Maintenance Due Date Last [...] 5 years 1995 Lung Cancer Screening 2000 OSTEOPOROSIS SCREENING 2015 INFLUENZA VACCINE (#1) 2025 RSV VACCINE (60+ or ) (1 - 1-dose 75+ series) 2025 Insurance [address] [address] [place] [address] [address] [place] Care Teams Guideman Relationship Specialty Start Date End Date Gareth Sumner DO [address] [place] [id number] PCP - General Family Practice 03/25/24
[2025-03-23 08:32] LABS: Estimated Glomerular Filt Rate > 60
== END 2025-03-23 08:04 | disposition home or self-care (01) ==
PROVIDERS: PCP Family Medicine; Visit Provider Internal Medicine Hematology & Oncology
DX: R91.8 Other nonspecific abnormal finding of lung field (principal); J98.11 Atelectasis; R91.1 Solitary pulmonary nodule; J43.9 Emphysema, unspecified; C91.10 Chronic lymphocytic leukemia of B-cell type not having achieved remission
CPT/HCPCS: 71260; 74177; Q9967

== ENCOUNTER 2025-04-20 09:44 | Outpatient (CLI) | payer MEDICARE, MEDICAID, SELFPAY ==
--- NOTE | ~2025-04-20 | DEXA_ITS ---
Bone Density Report Name: JANE JUDD Age: 74 Sex: Female Ethnicity: White Date of : 1950 Indication: postmenopausal; screening for osteoporosis; cancer; Referring Provider: GISSELLE VARELA Study: Bone densitometry was performed. Exam Date: April 20, 2025 Accession number: [id number] Bone Density: Region BMD T-score Z-score Classification AP Spine(L1-L4) 0.707 -3.1 -0.7 Osteoporosis Femoral Neck (Left) 0.442 -3.7 -1.6 Osteoporosis Total Hip (Left) 0.586 -2.9 -1.2 Osteoporosis Femoral Neck (Right) 0.418 -3.9 -1.8 Osteoporosis Total Hip (Right) 0.582 -2.9 -1.2 Osteoporosis Total Hip Mean 0.584 -2.9 -1.2 Osteoporosis World Health Organization criteria for BMD impression classify patients as: Normal (T-score at or above -1.0), Osteopenia (T-score between -1.0 and -2.5), or Osteoporosis (T-score at or below -2.5). 10-year Fracture Risk: FRAX not reported because: Some T-score for Spine Total or Hip Total or Femoral Neck at or below -2.5 Clinical Information Provided by Patient: Has the following medical conditions: Cancer Patient maximum height was 60 No regular weight bearing exercise Drinks caffeinated beverages Onset of menses at age 13 Number of children 3 Impression: The patient has osteoporosis, based on the Right Femoral Neck T-score. Discussion: INCREASED RISK OF FRACTURE. BONE DENSITY IS UNDESIRABLY LOW AT ONE OR MORE SKELETAL SITES, CONSISTENT WITH POSTMENOPAUSAL OSTEOPOROSIS. This patient's lowest T-score meets the World Health Organization's (WHO) criteria for osteoporosis at one or more sites (T-score -2.5 or below). In untreated patients, the risk of osteoporotic fracture increases approximately two-fold for each 1.0 SD decrease in T-score. Low bone density is not the only risk factor for fracture; also consider factors such as patient's age, frailty or poor health, risk of falling, risk of injury, previous osteoporotic fracture, family history of osteoporosis, cigarette smoking, low body weight, etc. Not everyone with low bone mineral density has osteoporosis; osteomalacia and other metabolic bone disorders should also be considered. Patients who have osteoporosis should be evaluated for specific diseases and conditions (secondary causes) that may cause or contribute to bone loss. The [place] Association of Clinical Endocrinologists (AACE) and National Osteoporosis Foundation (NOF) recommend pharmacologic intervention for all postmenopausal women whose T-score is in this range. The patient should follow a healthful lifestyle (good nutrition with adequate calcium and vitamin D, and appropriate weight-bearing exercise). Follow-Up: Consider a repeat BMD and Vertebral Fracture Assessment (VFA) exam in 2 years or sooner if medically necessary, to reassess this patient's status. Reported by: BRI on 04/20/2025 10:37:00 AM. Reviewed, dictated and finalized at location A.
--- OUTSIDE RECORDS SUMMARY | 2025-04-20 11:17 | XMS_ITS | Clinical Summary ---
Author Organization [facility]rade [facility] Address [address] [place] [address] Care Team Providers Care Channel Turner Name Role Phone Gareth Sumner DO Primary Care Provider [phone] Allergies Active Allergy Reactions Criticality Noted Date [...] 2.5-2.5 % CreamIndications :CLL (chronic lymphocytic leukemia) APPLY QUARTER SIZE AMOUNT TO PORT SITE 30 MINUTES BEFORE ACCESS 90 Gram 11 5 Active Active Problems No known active problems Encounters Date Type Department Care Team Description 04/12/2025 Orders Only [facility] Oncology and Hematology - [place] [address] [facility] [address] [place] [address] Benedicto Israel MD CLL (chronic lymphocytic leukemia) 03/30/2025 Orders Only [facility] Oncology and Hematology - [place] [address] [place] [address] Benedicto Israel MD 03/29/2025 Orders Only [facility] Oncology and Hematology - Yahir [address] [place] [address] Benedicto Israel MD CLL (chronic lymphocytic leukemia) ([facility]) 03/23/2025 External Device Data STL ABSTRACTION Provider, Abstract 03/16/2025 External Device Data STL ABSTRACTION Provider, Abstract 03/15/2025 Orders Only [facility] Oncology and Hematology - [place] [address] [place] [address] Benedicto Israel MD CLL (chronic lymphocytic leukemia) ([facility]) 03/01/2025 Orders Only [facility] Oncology and Hematology - [place]ahir [address] [place] [address] Benedicto Israel MD CLL (chronic lymphocytic leukemia) ([facility]) 02/15/2025 Orders Only [facility] Oncology and Hematology - [place] [address] [place] [address] Benedicto Israel MD CLL (chronic lymphocytic leukemia) ([facility]) 02/01/2025 Orders Only [facility] Oncology and Hematology - [place]ahir [address] [place] [phone] Benedicto Israel MD CLL (chronic lymphocytic leukemia) ([facility]) 01/18/2025 Orders Only [facility] Oncology and Hematology - Yahir [address] [place] [phone] Benedicto Israel MD CLL (chronic lymphocytic leukemia) ([facility]) from Last 3 Months Family History Medical [...] Care Team (Late st Contact Info) Description 04/26/2025 9:45 AM CDT Office Visit [facility] Oncology and Hematology - [place] [address] [facility] [address] [place] [address] Benedicto Israel MD [address] [facility] [address] [place] [address] Health Maintenance Due Date Last [...] ) (1 - 1-dose 75+ series) 2025 Procedures Procedure Name Priority Date/Time Associated Diagnosis Comments CT CHEST ABDOMEN PELVIS W CONT Routine 03/23/2025 9:19 AM CDT from Last 3 Months Results * CT CHEST ABDOMEN PELVIS W CONT (03/23/2025 9:19 AM CDT) Anatomical Region Laterality Modality Chest Computed Tomogra phy Benedicto Israel MD CT ORDERABLES Final Result from Last 3 Months Insurance [id number] [address] [place] [address] [address] [place] Care Teams Channel Turner Relationship Specialty Start Date End Date Gareth Sumner DO [address] [place] [phone] PCP - General Family Practice 03/25/24
== END 2025-04-20 09:45 | disposition home or self-care (01) ==
LOC: ANHFOHIMG 09:45
PROVIDERS: PCP Family Medicine; Visit Provider Family Medicine
DX: M81.0 Age-related osteoporosis without current pathological fracture (principal); Z78.0 Asymptomatic menopausal state
CPT/HCPCS: 77080